=== PATIENT | male | born 1945 | race Caucasian/White ===

== ENCOUNTER 2018-08-06 05:22 | Inpatient (IN) | payer OTHER, MEDICAID ==
[~2018-08-06] VITALS: Ht 182.9 cm; Wt 81.6 kg
[2018-08-06 05:24] VITALS: BP 144/92
--- NOTE | 2018-08-06 05:25 | NUR ---
0515-- PT BIBA BLS TO ER BED 9
[2018-08-06] MEDS ORDERED: NACL 0.9% 1,000 ML IV ONE (05:30)
--- NOTE | 2018-08-06 05:30 | NUR ---
73 Y/O M BIBA WITH ALTERED MENTAL STATUS. GCS 11. ASLEEP BUT RESPONDS TO PAINFUL STIMULI AND NAME. PT AWAKENS MOMENTARILY BUT QUICKLY FALLS BACK ASLEEP. UNABLE TO ANSWER QUESTIONS. MUMBLED SPEECH. PERRL PRESENT. PT HAS COUGH. BILATERAL LUNG [place] CLEAR. O2 SATURATION AT 96% ON ROOM AIR. PT HAD DRIED FECES ON CLOTHING AND DOWN RIGHT LEG. ERMD NOTIFIED. WILL CONTINUE TO MONITOR.
--- NOTE | 2018-08-06 06:00 | NUR ---
PT AWAKEN. AMBULATED TO WHEELCHAIR WITH ASSITANCE. GAIT UNSTEADY. PT TAKEN TO SHOWER.
[2018-08-06 07:00] LABS: BASOPHILS # (AUTO) 0.1 K/uL (0.00-0.22); BASOPHILS % (AUTO) 0.5 % (0.0-2.0); EOSINOPHILS # (AUTO) 0.1 K/uL (0-0.4); EOSINOPHILS % (AUTO) 0.8 % (0.0-4.0); HEMATOCRIT 37.7 % (36-52); HEMOGLOBIN 12.4 g/dL (12.0-18.0); LYMPHOCYTES # (AUTO) 1.4 K/uL (2.0-11.5); LYMPHOCYTES % (AUTO) 11.6 % (20.5-51.1); MEAN CORPUSCULAR HEMOGLOBIN 31 pg (27-31); MEAN CORPUSCULAR HGB CONC 33 g/dL (33-37); MEAN CORPUSCULAR VOLUME 93.7 fL (80-94); MONOCYTES # (AUTO) 1.4 K/uL (0.8-1.0); MONOCYTES % (AUTO) 11.3 % (1.7-9.3); NEUTROPHILS # (AUTO) 9.5 K/uL (1.8-7.7); NEUTROPHILS % (AUTO) 75.8 % (42.2-75.2); PLATELET COUNT (AUTO) 387 K/uL (140-450); RED BLOOD CELL COUNT(AUTO) 4.03 MIL/uL (4.20-6.10); RED CELL DISTRIBUTION WIDTH 14.8 % (11.6-13.7); WHITE BLOOD COUNT (AUTO) 12.5 K/uL (4.8-10.8)
[2018-08-06 07:02] LABS: ANION GAP 15.9 (8-16); CARBON DIOXIDE 26.1 mmol/L (21-32); CHLORIDE 94 mmol/L (98-107); GLUCOSE 91 mg/dL (74-106); SODIUM SERUM 132 mmol/L (136-145); UREA NITROGEN, BLOOD 16 mg/dL (7-18)
[2018-08-06 07:08] LABS: ALBUMIN 3.5 g/dL (3.4-5.0); ASPARTATE AMINOTRANSFERASE 37 U/L (15-37); TOTAL BILIRUBIN 0.4 mg/dL (0.0-1.0)
--- NOTE | 2018-08-06 07:10 | NUR ---
REPORT GIVEN TO BERNICE COBURN. TRANSFER OF CARE AT THIS TIME.
--- NOTE | 2018-08-06 07:18 | NUR ---
DR. DE JESUS BEDSIDE EVALUATING PT
--- NOTE | 2018-08-06 07:38 | NUR ---
PT PULLED ARM UPON INITIATING IV ON RT HAND. UNABLE TO OBTAIN URINE AT THIS TIME.PT AOX3, AWAKE TO SOUND. PT STATES HE DRANK BOTTLE OF WINE, CAUSED ABD DISCOMFORT. VS STABLE AT THIS TIME. PT PLACED ON FULL MANAGER TRANSITION . WILL CONITNUE TO MONITOR PT.
--- NOTE | 2018-08-06 09:00 | NUR ---
DR. MART AT THE BEDSIDE FOR PT EVAL.
[2018-08-06 09:10] VITALS: BP 123/78
--- NOTE | 2018-08-06 09:10 | NUR ---
RECEIVED PT FROM ER NURSE, PT IS LETHARGIC AND NOT FULLY AWAKE BUT RESPONDS WHEN BEING CALLED, HAS AN IV LINE ON THE RT FA G. 22 WITH NS STILL FINISHING THE NS BOLUS, VITAL SIGNS TAKEN AND IS STABLE, HOMELESS AND NO SIGN OF DISTRESS NOTED. WILL CONTINUE TO MONITOR PT.
--- NOTE | 2018-08-06 09:10 | NUR ---
Patient will be admitted to care of . Admited to . Will go to room. Belongings list completed. Report to .PT STABLE AT THIS TIME.
[2018-08-06] MEDS ORDERED: ONDANSETRON 4 MG/2 ML VIAL IM/IVP PRN (09:15)
[2018-08-06] MEDS ORDERED: HYDROcodone/APAP 5/325 MG 1 TAB TAB PO PRN (09:15)
[2018-08-06] MEDS ORDERED: DOCUSATE SODIUM 100 MG GELCAP PO PRN (09:15)
[2018-08-06] MEDS ORDERED: MORPHINE SULFATE 2 MG/ML SYR IVP PRN (09:15)
[2018-08-06] MEDS ORDERED: ACETAMINOPHEN 325 MG TAB PO PRN (09:15)
[2018-08-06] MEDS ORDERED: ZOLPIDEM 5 MG TAB PO PRN (09:15)
[2018-08-06] MEDS ORDERED: LORazepam 2 MG/ML VIAL IM/IVP PRN (09:15)
[2018-08-06 09:23] LABS: BILIRUBIN,URINE NEGATIVE (NEGATIVE); BLOOD, URINE 3+ (NEGATIVE); COLOR,URINE YELLOW (YELLOW); LEUKOCYTE ESTERASE ,URINE NEGATIVE (NEGATIVE); NITRITE, URINE NEGATIVE (NEGATIVE); UGLUCOSE NEGATIVE (NEGATIVE)
--- NOTE | 2018-08-06 09:25 | NUR ---
PATIENT HAS BEEN SCREENED AND CATEGORIZED HIGH NUTRITION RISK. PATIENT WILL BE SEEN WITHIN 1-2 DAYS OF ADMISSION. 08/07/18-08/08/[address]
[2018-08-06 09:43] LABS: PROTHROMBIN TIME 8.9 secs (10.8-13.4)
[2018-08-06 09:51] LABS: CHOL/HDL RATIO 3.5 (1-4.5); MAGNESIUM 2.2 mg/dL (1.8-2.4); THYROID STIMULATING HORMONE 1.94 uIU/mL (0.34-3.74)
[2018-08-06] MEDS ORDERED: PANTOPRAZOLE 40 MG TABEC PO SCH (10:00)
[2018-08-06] MEDS ORDERED: chlordiazePOXIDE 25 MG CAP PO SCH (10:00)
[2018-08-06] MEDS ORDERED: LACTOBACILLUS RHAMNOSUS GG 1 EACH CAP PO SCH (10:00)
[2018-08-06 10:19] LABS: APPEARANCE,URINE SLIGHTLY HAZY (CLEAR)
[2018-08-06 10:20] LABS: RBC,URINE 20-50 /HPF (0-5); WBC,URINE 0-5 /HPF (0-5)
[2018-08-06] MEDS: NACL 0.9% 1,000 ML IV SCH (10:34)
[2018-08-06 10:55] LABS: BARBITURATE, URINE NEG. ng/ml (NEG <=200); BENZODIAZEPINE, URINE POS. ng/mL (NEG <=200); CANNABINOID, URINE NEG. ng/mL (NEG <=50); COCAINE, URINE NEG. ng/mL (NEG <=300); OPIATE, URINE NEG. ng/mL (NEG <=2000); PHENCYCLIDINE SCREEN,URINE NEG. ng/mL (NEG <=25)
--- NOTE | 2018-08-06 11:00 | NUR ---
PT IS OFF THE UNIT NOW FOR A CT.
[2018-08-06 12:00] VITALS: BP 145/86
[2018-08-06] MEDS: PIPER/TAZO 3.375GM/D5W PREMIX 50 ML IV SCH ×2 (12:20→20:07)
--- NOTE | 2018-08-06 12:20 | NUR ---
PT WAS GIVEN IV ZOSYN VIA PIGGYBACK NOW. WILL MONITOR PT.
[2018-08-06] MEDS: MULTIVITAMIN-12 10 ML, THIAMINE 100 MG, FOLIC ACID 1 MG, MAGNESIUM SULFATE 50% 2,000 MG... IV SCH ×5 (13:42)
[2018-08-06] MEDS: chlordiazePOXIDE 25 MG CAP PO SCH ×2 (13:43→16:55)
--- NOTE | 2018-08-06 13:44 | NUR ---
PT WAS STARTED ON A BANANA BAG AT 1000ML AT A RATE OF 100ML/HR, ORAL MEDICATION WAS GIVEN, BP WAS 143/88, PULSE IS 100 AND O2 SATURATION IS 94%, NO SIGN OF DISTRESS NOTED AND WILL MONITOR PT.
[2018-08-06 16:00] VITALS: BP 102/68
--- NOTE | 2018-08-06 16:59 | NUR ---
PT'S VITAL SIGNS WAS CHECKED BP IS 139/67, PULSE IS 94, O2 SATURATION IS 96%, ORAL MEDICATION WAS GICEN AND PT TOLERATED IT. WILL MONITOR PT.
--- NOTE | 2018-08-06 19:22 | NUR ---
ENDORSED PT TO CLAY PRODUCTS GLAZER NURSE FOR CONTINUITY OF CARE.
--- NOTE | 2018-08-06 19:23 | NUR ---
REPORT RECEIVED FROM AM NURSE AT BEDSIDE. PT IN STABLE CONDITION. AAOX3-4. INTRODUCED SELF TO PT. BOARD UPDATED. NO COMPLAINTS OF PAIN. NO SOB. AFEBRILE. IV SITE R FA 22G RUNNING BANANA BAG@100ML/HR PATENT AND INTACT. ORIGINALLY RUNNING NS@60ML/HR. SKIN WARM, DRY, AND INTACT WITH NO OPEN WOUNDS. BED LOCKED IN LOW POSITION. CALL REIS WITHIN REACH. SAFETY PRECAUTION IN PLACE. ALL NEEDS MET AT THIS TIME.
[2018-08-06 20:00] VITALS: BP 119/73
[2018-08-06] MEDS: PANTOPRAZOLE 40 MG TABEC PO SCH (20:07)
--- NOTE | 2018-08-06 20:07 | NUR ---
FLY HUNG AND RUNNING. PROTONIX GIVEN PO. PT TOLERATED WELL.
--- NOTE | 2018-08-06 22:30 | NUR ---
IV R FA 22G INFILTRATED. PT R ARM IS SWOLLEN. ARM ELEVATED TO ALLOW SWELLING TO REDUCE. IV D/C. CANNULA INTACT. WILL INSERT NEW IV.
--- NOTE | 2018-08-06 22:55 | NUR ---
NEW IV INSERTED L FA 22G. 1 ATTEMPT. FLUSHES WELL.
[2018-08-07] VITALS: BP 125/64
[2018-08-07] MEDS: MULTIVITAMIN-12 10 ML, THIAMINE 100 MG, FOLIC ACID 1 MG, MAGNESIUM SULFATE 50% 2,000 MG... IV SCH ×5 (00:17)
--- NOTE | 2018-08-07 00:17 | NUR ---
BANANA BAG 2/2 HUNG AND RUNNING. PT TOLERATING WELL.
[2018-08-07] MEDS: NACL 0.9% 1,000 ML IV SCH ×2 (01:06→18:34)
--- NOTE | 2018-08-07 01:20 | NUR ---
PT AWAKE IN BED ATTEMPTING TO SLEEP. NO S/S OF DISTRESS NOTED. WILL CONTINUE TO MONITOR.
--- NOTE | 2018-08-07 03:10 | NUR ---
PT SLEEPING COMFORTABLY IN BED BUT AROUSABLE. NO S/S OF DISTRESS NOTED. RESPIRATIONS EVEN, UNLABORED, AND WNL. WILL CONTINUE TO MONITOR.
[2018-08-07 04:00] VITALS: BP 129/66
[2018-08-07] MEDS: PIPER/TAZO 3.375GM/D5W PREMIX 50 ML IV SCH ×3 (04:29→20:42)
--- NOTE | 2018-08-07 04:29 | NUR ---
FLY HUNG AND RUNNING. PT TOLERATING WELL.
--- NOTE | 2018-08-07 05:22 | NUR ---
BS 121. NO INSULIN COVERAGE NEEDED. Addendum: 08/07/18 at 0523 by Dorian Sunshine RN WRONG PATIENT.
[2018-08-07 07:11] LABS: BASOPHILS # (AUTO) 0.1 K/uL (0.00-0.22); BASOPHILS % (AUTO) 0.6 % (0.0-2.0); EOSINOPHILS # (AUTO) 0.2 K/uL (0-0.4); EOSINOPHILS % (AUTO) 2.2 % (0.0-4.0); HEMATOCRIT 37.2 % (36-52); HEMOGLOBIN 12.5 g/dL (12.0-18.0); LYMPHOCYTES # (AUTO) 1.7 K/uL (2.0-11.5); LYMPHOCYTES % (AUTO) 17.5 % (20.5-51.1); MEAN CORPUSCULAR HEMOGLOBIN 32 pg (27-31); MEAN CORPUSCULAR HGB CONC 34 g/dL (33-37); MEAN CORPUSCULAR VOLUME 94.4 fL (80-94); MONOCYTES # (AUTO) 1.1 K/uL (0.8-1.0); MONOCYTES % (AUTO) 12.1 % (1.7-9.3); NEUTROPHILS # (AUTO) 6.4 K/uL (1.8-7.7); NEUTROPHILS % (AUTO) 67.6 % (42.2-75.2); PLATELET COUNT (AUTO) 371 K/uL (140-450); RED BLOOD CELL COUNT(AUTO) 3.94 MIL/uL (4.20-6.10); RED CELL DISTRIBUTION WIDTH 14.9 % (11.6-13.7); WHITE BLOOD COUNT (AUTO) 9.5 K/uL (4.8-10.8)
--- NOTE | 2018-08-07 07:16 | NUR ---
REPORT GIVEN TO AM NURSE AT BEDSIDE. PT IN STABLE CONDITION.
[2018-08-07 07:18] LABS: ANION GAP 14.6 (8-16); CARBON DIOXIDE 21.6 mmol/L (21-32); CHLORIDE 100 mmol/L (98-107); CREATININE 0.9 mg/dL (0.7-1.3); GLUCOSE 120 mg/dL (74-106); POTASSIUM 4.2 mmol/L (3.5-5.1); SODIUM SERUM 132 mmol/L (136-145); UREA NITROGEN, BLOOD 12 mg/dL (7-18)
--- NOTE | 2018-08-07 07:20 | NUR ---
RECEIVED PT FROM WEB EDITOR, PT IS UP AND STANDING AND BEING CLEANED BY AED TRAINER, HAS AN IV LINE ON THE LEFT FA G. 22 WITH BANAN BAG INFUSING AT 100 ML/HR, INTACT, FALL AND SAFETY PRECAUTION ENFORCED, PT TALKING TO OTHER PT ON THE OTHER BED, NO SIGN OF DISTRESS NOTED AND WILL MONITOR PT.
[2018-08-07 08:00] VITALS: BP 119/62
[2018-08-07] MEDS ORDERED: MORPHINE SULFATE 2 MG/ML SYR IVP PRN (08:00)
--- NOTE | 2018-08-07 08:10 | NUR ---
PT IS AWAKE AND VITAL SIGNS CHECKED BP IS 119/62, PULSE IS 104, O2 SATURATION IS 97%, TEMPERATURE IS 97.9, RESPIRATION IS 18/MIN AND NO SIGN OF DISTRESS NOTED. WILL MONITOR PT.
[2018-08-07] MEDS: PANTOPRAZOLE 40 MG TABEC PO SCH ×2 (08:27→20:42)
[2018-08-07] MEDS: chlordiazePOXIDE 25 MG CAP PO SCH ×3 (08:28→17:36)
[2018-08-07] MEDS ORDERED: LACTOBACILLUS RHAMNOSUS GG 1 EACH CAP PO SCH (09:00)
[2018-08-07 12:00] VITALS: BP 126/60
[2018-08-07] MEDS ORDERED: MORPHINE SULFATE 2 MG/ML SYR IVP SCH (12:00)
[2018-08-07] MEDS ORDERED: NICOTINE TRANSD SYS 14 MG/24 HR PATCH TD SCH (12:00)
[2018-08-07] MEDS ORDERED: PROMETH/CODEINE 6.25-10MG/5ML 5 ML UDC PO PRN (12:10)
--- NOTE | 2018-08-07 12:20 | NUR ---
PT IS AWAKE AND EATING HIS LUNCH ORAL AND IV MEDICATIONS WERE GIVEN TO PT NA TOLERATED IT. WILL MONITOR PT.
--- NOTE | 2018-08-07 13:45 | NUR ---
PT WAS CLEANED AND WAS ASSISTED BACK TO BED AND PT SLEPT.
[2018-08-07 16:00] VITALS: BP 155/71
--- NOTE | 2018-08-07 17:40 | NUR ---
PT WAS CLEANED AND WAS ASSISTED BACK TO BED, V/S CHECKED AND ORAL MEDICATION WAS GIVEN AND PT TOLERATED IT. NO SIGN OF DISTRESS NOTED. WILL MONITOR PT.
--- NOTE | 2018-08-07 19:05 | NUR ---
ENDORSED PT TO BLENDER OPERATOR NURSE FOR CONTINUITY OF CARE.
--- NOTE | 2018-08-07 19:10 | NUR ---
RECEIVED PT FROM TELLO QUEEN . PT AAOX3 COOPERATIVE TO FOLLOW DR ;ORDERS, IV ON LEFT ARM INFUSING WELL NOT DISTRESS NOTED PT STILL COUGHING
[2018-08-07 20:00] VITALS: BP 170/89
--- NOTE | 2018-08-07 21:58 | NUR ---
AFTER PAIN MEDIC GIVEN PT IS SLEEING WELLL NOT DISTRESS NOTED BP WILL BE MONITORING
[2018-08-08] VITALS: BP 136/79
--- NOTE | 2018-08-08 00:12 | NUR ---
PT SLEEPING WELL NOT DISTRESS NOTED BP MONITORING AND STABLE AT THIS TIME, IV ;;ON LEFT FA INFUSING WELL
--- NOTE | 2018-08-08 03:00 | NUR ---
PT AWAKE VOIDING WELL NOT DISTRESS NOTED IV ON LEFT FA INFUSING WELL
[2018-08-08] MEDS: PIPER/TAZO 3.375GM/D5W PREMIX 50 ML IV SCH (04:45)
[2018-08-08] MEDS: NACL 0.9% 1,000 ML IV SCH (05:07)
--- NOTE | 2018-08-08 05:37 | NUR ---
SPONGE BATH GIVEN , LINEN CHANGED PT COOOPERATIVE NOT DISTRESS NOTED IV ON LEFT FA INFUSING WELL
--- NOTE | 2018-08-08 06:21 | NUR ---
PT WILL BE ENDORSED TO DAY SHIFT NURSE FOR CONTINUE OF CARE
[2018-08-08 06:44] LABS: ANION GAP 13.8 (8-16); CARBON DIOXIDE 23.2 mmol/L (21-32); CHLORIDE 103 mmol/L (98-107); CREATININE 0.9 mg/dL (0.7-1.3); GLUCOSE 92 mg/dL (74-106); SODIUM SERUM 136 mmol/L (136-145); UREA NITROGEN, BLOOD 11 mg/dL (7-18)
[2018-08-08 06:53] LABS: BASOPHILS # (AUTO) 0.1 K/uL (0.00-0.22); BASOPHILS % (AUTO) 0.6 % (0.0-2.0); EOSINOPHILS # (AUTO) 0.2 K/uL (0-0.4); EOSINOPHILS % (AUTO) 2.6 % (0.0-4.0); HEMATOCRIT 30.7 % (36-52); HEMOGLOBIN 10.5 g/dL (12.0-18.0); LYMPHOCYTES # (AUTO) 1.4 K/uL (2.0-11.5); LYMPHOCYTES % (AUTO) 16.7 % (20.5-51.1); MEAN CORPUSCULAR HEMOGLOBIN 32 pg (27-31); MEAN CORPUSCULAR HGB CONC 34 g/dL (33-37); MEAN CORPUSCULAR VOLUME 93.8 fL (80-94); MONOCYTES # (AUTO) 1.1 K/uL (0.8-1.0); MONOCYTES % (AUTO) 12.4 % (1.7-9.3); NEUTROPHILS # (AUTO) 5.8 K/uL (1.8-7.7); NEUTROPHILS % (AUTO) 67.7 % (42.2-75.2); PLATELET COUNT (AUTO) 344 K/uL (140-450); RED BLOOD CELL COUNT(AUTO) 3.27 MIL/uL (4.20-6.10); RED CELL DISTRIBUTION WIDTH 14.4 % (11.6-13.7); WHITE BLOOD COUNT (AUTO) 8.5 K/uL (4.8-10.8)
--- NOTE | 2018-08-08 07:01 | NUR ---
RECEIVED BED SIDE REPORT FROM MEDICAL LABORATORY SCIENTIST RN LYNDA. PT AWAKE. CXR BEING DONE TO CHECK FOR ANY PNA. STILL WAITING ON CORRUGATOR TO CALL ME FOR TRANSFER. DC ORDER PUT IN BY . ECHO STILL TO BE DONE ON PT. VS STABLE, BP A LITTLE ELEVATED 168/86, WILL GIVE BP MEDS IF ORDERED. SKIN INTACT, L FOREARM 22G RUNNING NS 60CC/HR. WILL CONTINUE TO MONITOR
[2018-08-08] MEDS ORDERED: INUL1CTB PO (08:02)
[2018-08-08] MEDS ORDERED: AMOX-1000 PO (08:02)
--- NOTE | 2018-08-08 08:25 | NUR ---
CAME TO SEE PT AND SAID THAT HE WILL BE DISCHARGED LATER TODAY BUT FIRST NEEDS TO HAVE AN ECHO DONE. PT SAID HE WILL NOT WAIT. SAID HE HAS FAMILY PROBLEMS AND IT IS AN EMERGENCY AND HE NEEDS TO GO HELP. EDUCATED HIM ON THE IMPORTANCE OF HAVING THE ECHO DONE. PT REQUESTED NEW CLOTHES BECAUSE HIS OLD ONES WERE SOAKED. CALLED SECURITY TO BRING HIM NEW ONES. PT BEGAN TO DRESS HIMSELF. REQUESTED TO HAVE HIS IV TAKEN OUT. EDUCATED PT AGAIN AND ASKED IF HE COULD STAY UNTIL THE ECHO IS FINISHED. PT REFUSED AND CONTINUED TO DRESS HIMSELF. NOTIFIED CIGARETTE INSPECTOR JOWIE
[2018-08-08] MEDS ORDERED: NICOTINE TRANSD SYS 14 MG/24 HR PATCH TD SCH (09:00)
--- NOTE | 2018-08-08 09:11 | NUR ---
PT SIGNED AMA FORM, EXPLAINED THE RISKS OF LEAVING AMA. RX ABX GIVEN TO PT WELL HOMELESS RESOURCE PACKET. PT'S WRIST BAND IS OFF, CURRENTLY BEING HELPED TO BE WHEELED OUT BY LALY NICOLE. PERSONAL BELONGINGS TAKEN BY PT. PT IN STABLE CONDITION.
--- NOTE | 2018-08-08 09:22 | NUR ---
PT DRESSED AND IN WHEELCHAIR. REQUESTED A BUS PASS. CALLED HOUSE SUP AND GOT ONE FOR PT.
== END 2018-08-08 09:25 | disposition left against medical advice (07) | DRG 871 ==
LOC: MED 05:22 → MTU 08:42
PROVIDERS: ADMIT General Practice; ATTEND General Practice
DX: A41.9 Sepsis, unspecified organism (principal); J69.0 Pneumonitis due to inhalation of food and vomit; G92 Toxic encephalopathy; F10.239 Alcohol dependence with withdrawal, unspecified; E87.1 Hypo-osmolality and hyponatremia; Y90.0 Blood alcohol level of less than 20 mg/100 ml; I10 Essential (primary) hypertension; F17.200 Nicotine dependence, unspecified, uncomplicated; Z53.21 Procedure and treatment not carried out due to patient leaving prior to being seen by health care provider; R31.9 Hematuria, unspecified; Z59.0 Homelessness
CPT/HCPCS: 36415; 70450; 71045; 76604; 80048; 80053; 80305; 81001; 82140; 82150; 83036; 83605; 83690; 83735; 83880; 84100; 84134; 84443; 84484; 85025; 85610; 85730; 87040; 87081; 93005; 99285; A9153; G0482; J2270; J2543; J3411; J3475; J3490; J7030; Q0092

== ENCOUNTER 2019-02-19 07:56 | Emergency (ER) | payer OTHER, MEDICAID ==
[~2019-02-19] VITALS: Ht 172.7 cm; Wt 68.0 kg
[2019-02-19 07:56] VITALS: BP 164/115
[~2019-02-19 07:56] MED LIST: AMOX-1000 PO; INUL1CTB PO
--- NOTE | 2019-02-19 07:57 | NUR ---
Patient BIBA BLS, transferred to bed 5. RN evaluating patient at bedside.
[2019-02-19] MEDS ORDERED: KETOROLAC 60 MG/2 ML VIAL IM ONE (08:15)
--- NOTE | 2019-02-19 08:33 | NUR ---
BIBA ALS C/O BILATERAL LEG PAIN, STATES HE FELL X1 WEEK AGO IN THE RAIN, BILATERAL LOWER LEGS APPEAR SWOLLEN AND RED.PT IS AWAKE , ALERT ,REDNESS OF BILATERAL LEG WITH HEALING ABRASION ON RIGHT LEG NOTED.PAIN AT 8/10.PT ABLE TO MOVE BOTH LEGS WITH PAIN.PT IS IRRITABLE . HX DENIES
[2019-02-19] MEDS ORDERED: MORPHINE SULFATE 4 MG/ML SYR IM ONE (12:15)
--- NOTE | 2019-02-19 14:09 | NUR ---
Dr. Arboleda is evaluating the patient at bedside.
[2019-02-19 14:31] VITALS: BP 132/75
--- NOTE | 2019-02-19 14:33 | NUR ---
Patient discharged with v/s stable. Written and verbal after care instructions given and explained cellulitis. Patient alert, oriented and verbalized understanding of instructions. Ambulatory with steady gait. All questions addressed prior to discharge. ID band removed. Patient advised to follow up with PMD. Rx of motrin,prednisone,and keflex given. Patient educated on indication of medication including possible reaction and side effects. Opportunity to ask questions provided and answered.Pt given list of shelters to go , taxi pass given and food to go.
--- NOTE | 2019-02-19 14:46 | NUR ---
Taxi voucher provided. Taxi called. ETA approximately 45 min-1 hour. Pt waiting in ER lobby at this time.
--- NOTE | 2019-02-19 15:14 | NUR ---
straight truck driver refusing to take patient to destination. Pt told ready mix truck driver that he would not get out of the taxi and couldn't walk. Pt wants to lay down inside in a bed and wait for morning to go to clinic. I advised patient that he couldn't wait inside but could wait in ER lobby until morning.
== END 2019-02-19 14:33 | disposition home or self-care (01) ==
LOC: MED 07:56
DX: L03.116 Cellulitis of left lower limb (principal); L03.115 Cellulitis of right lower limb; F17.210 Nicotine dependence, cigarettes, uncomplicated; I10 Essential (primary) hypertension; Z79.899 Other long term (current) drug therapy
CPT/HCPCS: 96372; 99283; J1885; J2270

== ENCOUNTER 2019-02-20 11:57 | Inpatient (IN) | payer OTHER, MEDICAID ==
[~2019-02-20] VITALS: Ht 172.7 cm; Wt 59.0 kg
[2019-02-20 12:00] VITALS: BP 150/84
--- NOTE | 2019-02-20 12:03 | NUR ---
PT TRIAGED ON EMS GURNEY, PLACED IN W/C AND SENT TO ER LOBBY TO WAIT FOR AVAILABLE BED.
--- NOTE | 2019-02-20 12:38 | NUR ---
Pt yelling in the ER lobby, pulling his pants down and urinated all over the floor.
--- NOTE | 2019-02-20 12:41 | NUR ---
Pt w/c to bed 2.
--- NOTE | 2019-02-20 12:54 | NUR ---
C/O RIGHT LOWER LEG PAIN, FOUND IN [facility], PT WAS SEEN YESTERDAY FOR SAME SYMPTOMS. DENIES HX BUT ADMITS HX OF DRUG ADDICTIVE.WHEELCHAIRED PT TO ROOM. DENIES N/V/D; SKIN IS PINK/WARM/DRY; AWAKE, ALERT. LUNGS CLEAR BL; HR EVEN AND REGULAR; PT DENIES ANY FEVER, CP, SOB, OR COUGH AT THIS TIME; PATIENT STATES PAIN OF 10/10 AT THIS TIME; VSS; PATIENT POSITIONED FOR COMFORT; HOB ELEVATED; BEDRAILS UP X2; BED DOWN. ER MD MADE AWARE OF PT STATUS.
--- NOTE | 2019-02-20 12:55 | NUR ---
PT'S BOTH LOWER EXTREMITIES ARE WARM, SWELLING AND RED. PT C/O PAINFUL TO TOUCH.
[2019-02-20] MEDS ORDERED: NACL 0.9% 1,000 ML IV SCH (13:46)
[2019-02-20 13:49] LABS: HEMATOCRIT 36.9 % (36-52); HEMOGLOBIN 11.8 g/dL (12.0-18.0); MEAN CORPUSCULAR HEMOGLOBIN 30 pg (27-31); MEAN CORPUSCULAR HGB CONC 32 g/dL (33-37); PLATELET COUNT (AUTO) 334 K/uL (140-450); RED BLOOD CELL COUNT(AUTO) 3.93 MIL/uL (4.20-6.10); RED CELL DISTRIBUTION WIDTH 15.9 % (11.6-13.7)
[2019-02-20] MEDS ORDERED: ACETAMINOPHEN 325 MG TAB PO PRN (13:50)
[2019-02-20] MEDS ORDERED: DOCUSATE SODIUM 100 MG GELCAP PO PRN (13:50)
[2019-02-20] MEDS ORDERED: VANCOMYCIN PER PHARMACY MC PRN (13:50)
[2019-02-20] MEDS ORDERED: ONDANSETRON 4 MG/2 ML VIAL IM/IVP PRN (13:50)
[2019-02-20 14:07] LABS: WHITE BLOOD COUNT (AUTO) 39.2 K/uL (4.8-10.8)
--- NOTE | 2019-02-20 14:16 | NUR ---
FOOD TRAY PROVIDED TO BED 2.
--- NOTE | 2019-02-20 14:30 | NUR ---
TRIED TO INSERT IV. IT WAS UNSCCESFUL. NOTIFIED CHARGE NURSE.
[2019-02-20] MEDS ORDERED: PIPERACILLIN/TAZOBACTAM 3.375 GM in DEXTROSE 5% 50 ML IV ONE (14:40)
[2019-02-20] MEDS ORDERED: MORPHINE SULFATE 4 MG/ML SYR IVP ONE (14:40)
[2019-02-20 14:48] LABS: CHLORIDE 99 mmol/L (98-107); POTASSIUM 3.6 mmol/L (3.5-5.1); SODIUM SERUM 135 mmol/L (136-145)
[2019-02-20 14:49] LABS: ALBUMIN 1.5 g/dL (3.4-5.0); ANION GAP 12.9 (8-16); ASPARTATE AMINOTRANSFERASE 20 U/L (15-37); BASOPHILS % (MANUAL) 0 % (0-2); CARBON DIOXIDE 26.7 mmol/L (21-32); CREATININE 1.3 mg/dL (0.7-1.3); EOSINOPHILS % (MANUAL) 0 % (0-4); GLUCOSE 107 mg/dL (74-106); LYMPHOCYTES % (MANUAL) 3 % (20-46); MONOCYTES % (MANUAL) 2 % (5-12); TOTAL BILIRUBIN 0.4 mg/dL (0.0-1.0); UREA NITROGEN, BLOOD 38 mg/dL (7-18)
--- NOTE | 2019-02-20 15:25 | NUR ---
IV TO RIGHT FA #22.
[2019-02-20] MEDS ORDERED: PIPERACILLIN/TAZOBACTAM 3.375 GM VIAL IV ONE (15:27)
[2019-02-20] MEDS ORDERED: FUROSEMIDE 40 MG/4 ML VIAL IVP SCH (16:00)
[2019-02-20 16:37] LABS: AMYLASE 21 U/L (25-115); LIPASE 25 U/L (73-393); MAGNESIUM 1.9 mg/dL (1.8-2.4); PHOSPHORUS 3.8 mg/dL (2.5-4.9); THYROID STIMULATING HORMONE 4.58 uIU/mL (0.34-3.74)
[2019-02-20 16:39] LABS: PROTHROMBIN TIME 10.3 secs (10.8-13.4)
[2019-02-20] MEDS ORDERED: VANCOMYCIN 1,000 MG in DEXTROSE 5% 250 ML IV SCH (17:00)
[2019-02-20] MEDS ORDERED: MORPHINE SULFATE 4 MG/ML SYR IM SCH (17:00)
[2019-02-20 17:05] VITALS: BP 138/77
--- NOTE | 2019-02-20 17:05 | NUR ---
[facility]CE[place] [facility]. REPORT RECEIVED FROM BERNICE BURROUGHS. PATIENT DX: BLE CELLULITIS. PATIENT AAOX3. PLANS OF CARE DISCUSSED. IV INTACT AND PATENT TO RIGHT FOREARM. TELE MONITOR PLACED. VS STABLE. SAFETY PRECAUTIONS IN PLACE. BED IN LOW POSITION. ORIENTED TO STAFF AND ROOM. CALL LIGHT WITHIN REACH.
--- NOTE | 2019-02-20 17:12 | NUR ---
TRANSFERRED PT TO TELE 123B. REPORT GIVEN TO SLICK. ALL PERSONAL BELONGINGS WITH PT.
[2019-02-20 17:43] LABS: LACTATE DEHYDROGENASE 218 U/L (85-227)
[2019-02-20] MEDS: POTASSIUM CHL 20 MEQ/NACL 0.9% 1,000 ML IV SCH ×2 (18:00→22:38)
[2019-02-20] MEDS: VANCOMYCIN HCL 750 MG in DEXTROSE 5% 250 ML IV SCH (18:07)
--- NOTE | 2019-02-20 19:15 | NUR ---
PATIENT IN STABLE CONDITION. WILL ENDORSE TO NIGHT NURSE FOR CONTINUITY OF CARE.
--- NOTE | 2019-02-20 19:20 | NUR ---
RECEIVED PT FROM [facility] NURSE PT IS AAOX4 WITH MULTIPLES SCAB ON HIS BODY AND BLE CELLULITIS RT LE BIG BLISTER [id number] AND DISCOLORATION AND BLISTER ON LEFTLEG AND CELLULITIS IV ON RT FA INFUSING WELL INITIAL ASSESSMENT DONE
[2019-02-20 20:00] VITALS: BP 137/79
[2019-02-20 21:11] LABS: BILIRUBIN,URINE NEGATIVE (NEGATIVE); BLOOD, URINE NEGATIVE (NEGATIVE); LEUKOCYTE ESTERASE ,URINE NEGATIVE (NEGATIVE); NITRITE, URINE NEGATIVE (NEGATIVE); UGLUCOSE NEGATIVE (NEGATIVE)
[2019-02-20 21:14] LABS: APPEARANCE,URINE CLEAR (CLEAR); COLOR,URINE YELLOW (YELLOW)
--- NOTE | 2019-02-20 22:00 | NUR ---
PT RESTING ON BED NOT DISTRESS NOTED, REPOSITIONED Q2H ON TELEMETRY ST
[2019-02-20] MEDS: PIPERACILLIN/TAZOBACTAM 3.375 GM in DEXTROSE 5% 50 ML IV SCH (22:26)
[2019-02-20] MEDS: MORPHINE SULFATE 2 MG/ML SYR IVP PRN (22:43)
--- NOTE | 2019-02-20 23:30 | NUR ---
AFTER PAIN MEDIC PT GETTING SLEEP PM TELEMETRY SR
[2019-02-21] VITALS: BP 140/79
--- NOTE | 2019-02-21 02:00 | NUR ---
ER NURSE WAS ABLE TO INSERT IV ON LEFT AC GAUGE [address] BLE. AND WAS NOTIFY RADIOLOGY TRCH
[2019-02-21 04:00] VITALS: BP 150/94
--- NOTE | 2019-02-21 04:00 | NUR ---
SPONGE BATH GIVEN LINEN CHANGED ON TELE SR NOT DISTRESS NOTED
[2019-02-21] MEDS: PIPERACILLIN/TAZOBACTAM 3.375 GM in DEXTROSE 5% 50 ML IV SCH ×3 (05:06→20:31)
--- NOTE | 2019-02-21 07:00 | NUR ---
PT READY TO HACE CT OF BILATERAL LE CONSENT SIGNED
--- NOTE | 2019-02-21 07:25 | NUR ---
RECEIVED REPORT FROM MEDICAL RECORDS ADMINISTRATOR NURSE FOR CONTINUATION OF CARE. WILL CONTINUE TO MONITOR.
[2019-02-21 08:00] VITALS: BP 156/83
[2019-02-21] MEDS: FUROSEMIDE 40 MG/4 ML VIAL IVP SCH (08:21)
[2019-02-21] MEDS: LACTOBACILLUS RHAMNOSUS GG 1 EACH CAP PO SCH (08:21)
--- NOTE | 2019-02-21 08:50 | NUR ---
PATIENT HAS BEEN SCREENED AND CATEGORIZED MODERATE NUTRITION RISK. PATIENT WILL BE SEEN WITHIN 3-5 DAYS OF ADMISSION. 02/23/19 02/25/[address]
[2019-02-21 09:07] LABS: HEMATOCRIT 28.3 % (36-52); HEMOGLOBIN 9.1 g/dL (12.0-18.0); MEAN CORPUSCULAR HEMOGLOBIN 30 pg (27-31); MEAN CORPUSCULAR HGB CONC 32 g/dL (33-37); MEAN CORPUSCULAR VOLUME 92.5 fL (80-94); PLATELET COUNT (AUTO) 354 K/uL (140-450); RED BLOOD CELL COUNT(AUTO) 3.06 MIL/uL (4.20-6.10); RED CELL DISTRIBUTION WIDTH 15.3 % (11.6-13.7)
--- NOTE | 2019-02-21 10:00 | NUR ---
PATIENT IS RESTING IN BED, BLE ARE RED AND HE REPORTS PAIN, CALLED [facility] IN [place] TO CLARIFY [facility] ORDER. WAITING FOR CALL BACK. WILL CONTINUE TO MONITOR. BED IN LOW POSITION, CALL LIGHT ON AND WITHIN REACH. WILL CONTINUE TO MONITOR.
[2019-02-21 10:24] LABS: LYMPHOCYTES % (MANUAL) 2 % (20-46); MONOCYTES % (MANUAL) 2 % (5-12); WHITE BLOOD COUNT (AUTO) 32.8 K/uL (4.8-10.8)
--- NOTE | 2019-02-21 10:46 | NUR ---
Angle Roll Operator Note: Patient is a 73-year-old male admitted for bilateral lower extremity pain. Patient has PMHX of hypertension. Patient was admitted from home. SW met with patient to verify demographics. Patient was asleep and refused to complete assessment. SW will follow up as needed. Addendum: 02/23/19 at 1605 by Thuan Galloway SS SW met with patient at bed side to retrieve patient's address. Patient stated that he had been couch surfing but now has no where to stay. Patient reported receiving ~$1000 from [employer]. SW provided room and board resources to patient. Patient stated he would coordinate living arrangements. SW will follow up as needed.
--- NOTE | 2019-02-21 10:54 | NUR ---
DC PLANNIN YRS OLD MALE PT WAS ADMITTED FROM HOME WITH A DX OF BILATERAL LOWER EXTREMITY CELLULITIS . PT HAS NO MEDICAL HX. CHRONIC ULCER 4TH TOE RT FOOT . WBC 32.8 ADMINISTERED IV ABX VANCOMYCIN/ ZOSYN ,BLOOD CULTURE AND WOUND CULTURE PENDING PODIATRY SEEN PATIENT RECOMMENDED VASCULAR SURGERY . DC PLAN TO TRANSFER PT TO [facility] FOR VASCULAR SURGERY DUE TO SEVER PERIPHERAL VASCULAR DISEASE . FAXED ALL THE PAPERWORK TO [facility], AND [facility] . OJSS TO FOLLOW.
[2019-02-21 12:00] VITALS: BP 154/66
[2019-02-21 12:01] LABS: CHOL/HDL RATIO 5.3 (1-4.5)
[2019-02-21] MEDS ORDERED: METHADONE 10 MG TAB PO SCH (12:14)
--- NOTE | 2019-02-21 12:30 | NUR ---
DC PLANNING RECEIVED A CALL FROM [facility] SPOKE WITH JOSHUA LINTON CONTROL , UPDATED PT'S INFORMATION REQUESTING THE CELL PHONE FOR PEER TO PEER PROVIDED THE RESIDENT'S PHONE NUMBER AND WILL FAX THE AB LETTER .CM TO FOLLOW Addendum: 02/21/19 at 1530 by Suri Cheema CM DC PLANNING: FAXED ALL THE PAPER WORK TO [facility] SPOKE WITH UVALDO , STATED THE ADMITTING OFFICE IS REVIEWING THE CASE AND WILL CALL US BACK .CM TO FOLLOW Addendum: 02/22/19 at 1112 by Suri Cheema CM LATE ENTRY 02/21/19 1600 RECEIVED A CALL FROM [facility] STATED THEY ARE ACCEPTING PT PEER TO PEER CONVERSATION WAS DONE AND WAITING FOR THE BED. ARRANGED THE TRANSPORT PLACE IT WILL CALL . Addendum: 02/22/19 at 1142 by Suri Cheema CM DC PLANNING RECEIVED A CALL FROM [facility] SPOKE WITH GAIL, STATED SHE JUST RECEIVED THE PAPERWORK FROM THE BED HUDDLE AND DOESN'T KNOWING ANYTHING. I EXPLAIN TO HER THERE IS ACCEPTING DR AND PEER TO PEER IS DONE WITH OUR DR. PER GAIL SHE DOESN'T HAVE AND BED AVAILABLE AT THIS TIME 18 PATIENTS ARE WAITING IN THE ER AND ALSO THEY GIVE PRIORITY TO THE PATIENT LIVES IN [facility]. CALLED [facility] SPOKE WITH KARINA BED CONTROL STATED THEY ARE IN LEVEL 3 CAN NOT ACCEPT ANY TRANSFERS AND HESITATED TO TAKE PATIENT INFO. I EXPLAINED HER THAT THIS IS LIFE THREATENING PT MIGHT LOOSE HIS LEG AND AT LEAST TO TAKE SOME INFO. KARINA PUT ME ON HOLD FOR A FEW MINUTES AND BACK AND RECEIVED PATIENT'S INFORMATION AND SHE INSIST TO TRY ANOTHER HOSPITAL, I ALSO EXPLAIN THAT WE TRIED MANY HOSPITAL AND NO BED AT ALL. AND THIS PT REQUIRED PRIORITY NEEDS A VASCULAR SURGEON , KARINA STILL HESITATED TO PUT HIM ON THE PRIORITY LIST. CALLED [facility] SPOKE WITH ROXANA TWISTING OPERATOR [phone] RE OPEN THE CASE AGAIN AND TOLD HER [facility] HAS NO BED. PER ROXANA SHE WILL REVIEW THE CASE AND WILL CALL US BACK Addendum: 02/22/19 at 1148 by Suri Cheema CM DC PLANNING: CALLED [facility] SPOKE WITH NILE REGARDING TRANSFER , SHE STILL LOOK FOR THE VASCULAR SURGEON AND WILL CALL US BACK Addendum: 02/22/19 at 1348 by Suri Cheema CM DC PLANNING RECEIVED A CALL FROM [facility] , STATED THEY DECLINE PT BECAUSE IT IS A CHRONIC AND DOESN'T NEED EMERGENCY TRANSFER. Addendum: 02/22/19 at 1650 by Suri Cheema CM DC PLANNING FAXED TO [facility] , REVIEWING THE CASE AND WILL CALL BACK Addendum: 02/23/19 at 1109 by Suri Cheema CM DC PLANNING RECEIVED A CALL FROM [facility] SPOKE WITH [facility] BED COORDINATOR STATED NEEDS A AB SIGNED AND FAXED BACK TO THEM. AB SIGNED BY NYDIA BANEGAS AND FAXED BACK TO [facility] . [facility] STATED HE RECEIVED IT AND ONCE BED AVAILABLE HE WILL CALL BACK. RECEIVED A MESSAGE FROM [facility] GAIL AND [facility] RUDOLPH STATED THERE IS NO BED AVAILABLE AT THIS TIME. CM TO FOLLOW Addendum: 02/23/19 at 1530 by Suri Cheema CM DC PLANNING CALLED [facility] SPOKE WITH YARELY STATED RECEIVED THE REQUEST BUT THEY ARE TOO BUSY TO REVIEW THE CASE AND NO BED AVAILABLE AT THIS TIME. CALLED [facility] SPOKE WITH HADLEY STILL WAITING FOR BED AND ONCE HE HAS A BED WILL CALL US BACK .CM TO FOLLOW.
--- NOTE | 2019-02-21 12:30 | NUR ---
PATIENT IS RESTING IN BED, BED IN LOW POSITION, CALL LIGHT ON AND WITHIN REACH. WILL CONTINUE TO MONITOR. [facility] WAS CONFIRMED AT [address] JORDAN ORDERED 90 MG Q DAY. IV FLUIDS GIVEN. TOLERATED MEDICATIONS WELL.
[2019-02-21] MEDS: POTASSIUM CHL 20 MEQ/NACL 0.9% 1,000 ML IV SCH (13:37)
--- NOTE | 2019-02-21 15:00 | NUR ---
PATIENT IS RESTING IN BED, URINAL EMPTIED, PATIENT COMPLAINS OF PAIN, LUNCH TOLERATED WELL. CALL LIGHT ON AND WITHIN REACH. WILL CONTINUE TO MONITOR.
[2019-02-21 16:00] VITALS: BP 153/56
[2019-02-21 17:16] LABS: BARBITURATE, URINE NEG. ng/ml (NEG <=200); BENZODIAZEPINE, URINE NEG. ng/mL (NEG <=200); CANNABINOID, URINE NEG. ng/mL (NEG <=50); COCAINE, URINE NEG. ng/mL (NEG <=300); OPIATE, URINE NEG. ng/mL (NEG <=2000); PHENCYCLIDINE SCREEN,URINE NEG. ng/mL (NEG <=25)
[2019-02-21] MEDS: VANCOMYCIN HCL 750 MG in DEXTROSE 5% 250 ML IV SCH (17:28)
--- NOTE | 2019-02-21 17:30 | NUR ---
PATIENT IS RESTING IN BED, CALL LIGHT ON AND WITHIN REACH, WAS INFORMED THAT HE WILL BE TRANSFERRED TO [place]. WILL CONTINUE TO MONITOR.
[2019-02-21 17:34] LABS: ANION GAP 12.8 (8-16); CARBON DIOXIDE 24.8 mmol/L (21-32); CHLORIDE 100 mmol/L (98-107); CREATININE 1.1 mg/dL (0.7-1.3); GLUCOSE 62 mg/dL (74-106); POTASSIUM 3.6 mmol/L (3.5-5.1); SODIUM SERUM 134 mmol/L (136-145); UREA NITROGEN, BLOOD 27 mg/dL (7-18)
[2019-02-21] MEDS ORDERED: LAS20I IVP (18:02)
[2019-02-21] MEDS ORDERED: DOL10 PO (18:02)
[2019-02-21] MEDS ORDERED: MORP2SOL18 IVP (18:02)
[2019-02-21] MEDS ORDERED: [UNRECOGNIZED DRUG - CODE] IV (18:02)
[2019-02-21] MEDS ORDERED: ACET-1182 PO (18:02)
[2019-02-21] MEDS ORDERED: ZOS3.375PM IV (18:02)
[2019-02-21] MEDS ORDERED: HEPA500056 SUBQ (18:02)
--- NOTE | 2019-02-21 19:22 | NUR ---
REPORT GIVEN TO INCOME TAX AUDITOR NURSE FOR CONTINUITY OF CARE.
--- NOTE | 2019-02-21 19:23 | NUR ---
RECEIVED PT ON BED, AAOX3, ABLE TO MAKE NEEDS KNOWN, VITAL SIGNS STABLE, COMPLAINING OF PAIN TO BOTH LEGS, WILL MEDICATE PRN, MICHAEL LOWER EXTREMITIES CELLULITIS, SITE SWOLLEN AND RED WITH DISCOLORATION, INTACT BLISTER TO RT DORSAL FOOT AND MULTIPLE SMALL BLISTER TO LEFT LEG NOTED, BOTH LEGS ELEVATED WITH PILLOW, IVF INFUSING WELL, PLAN OF CARE DISCUSSED, SAFETY MEASURES IN PLACE, CALL LIGHT WITHIN REACH.
[2019-02-21 20:00] VITALS: BP 145/66
[2019-02-21] MEDS: HYDROcodone/APAP 5/325 MG 1 TAB TAB PO PRN (20:29)
--- NOTE | 2019-02-21 20:30 | NUR ---
PT MEDICATED PRN FOR LEG PAIN WITH NORCO, DUE ZOSYN IVPB ADMINISTERED, PT REQUESTING FOR SNACK, PUDDING X2 PROVIDED, ALL NEEDS ATTENDED.
--- NOTE | 2019-02-21 23:30 | NUR ---
PT VOIDED FREELY USING URINAL, VITAL SIGNS STABLE, NO SOB NOTED, DENIES ANY PAIN, STATED PAIN TO LEG ONLY WHEN MOVED, CONTINUE TO ELEVATE WITH PILLOW, IVF INFUSING WELL, CONTINUE TO MONITOR CLOSELY.
[2019-02-22] VITALS: BP 135/68
--- NOTE | 2019-02-22 01:50 | NUR ---
ROUNDS MADE, SEEN PT SLEEPING, NO DISTRESS NOTED, MONITORED CLOSELY.
[2019-02-22] MEDS: POTASSIUM CHL 20 MEQ/NACL 0.9% 1,000 ML IV SCH ×2 (02:27→08:35)
[2019-02-22 04:00] VITALS: BP 141/70
--- NOTE | 2019-02-22 04:00 | NUR ---
PT SLEEPING, EASILY AROUSABLE, VITAL SIGNS STABLE, DENIES ANY PAIN, NO SOB NOTED, IVF INFUSING WELL, MONITORED CLOSELY.
[2019-02-22] MEDS: PIPERACILLIN/TAZOBACTAM 3.375 GM in DEXTROSE 5% 50 ML IV SCH ×3 (04:32→20:15)
[2019-02-22] MEDS: MORPHINE SULFATE 2 MG/ML SYR IVP PRN ×2 (05:12→22:53)
--- NOTE | 2019-02-22 05:20 | NUR ---
PT COMPLAINING OF PAIN AND BURNING SENSATION TO RT LEG, REQUESTING FOR SOME OINTMENT TO BE APPLIED FOR THE RT LEG, OFFERED MORPHINE IVP FOR PAIN, PT SAID OK, MORPHINE 2MG IVP GIVEN, ASSIST IN REPOSITIONING RT LEG TO A MORE COMFORTABLE POSITION, MONITORED CLOSELY.
--- NOTE | 2019-02-22 06:20 | NUR ---
PT AGREED TO DO CT OF BLE BUT NOT AT THIS TIME, STATED "LATER", TOÑA POTTS MADE AWARE, PT INQUIRING IF ITS TIME FOR BREAKFAST, MADE AWARE THAT BREAKFAST IS AT 0730, PT REQUESTING FOR COFFEE, PROVIDED, PT WATCHING TV AT THIS TIME, WILL ENDORSE TO AM SHIFT.
--- NOTE | 2019-02-22 07:22 | NUR ---
PT AWAKE, NO DISTRESS NOTED, REPORT GIVEN TO BERNICE GLYNN FOR CONTINUITY OF CARE.
[2019-02-22 07:34] LABS: BASOPHILS % (AUTO) 0.1 % (0.0-2.0); EOSINOPHILS # (AUTO) 0.1 K/uL (0-0.4); EOSINOPHILS % (AUTO) 0.5 % (0.0-4.0); HEMATOCRIT 28.4 % (36-52); HEMOGLOBIN 9.1 g/dL (12.0-18.0); LYMPHOCYTES % (AUTO) 4.2 % (20.5-51.1); MEAN CORPUSCULAR HEMOGLOBIN 30 pg (27-31); MEAN CORPUSCULAR HGB CONC 32 g/dL (33-37); MEAN CORPUSCULAR VOLUME 93.3 fL (80-94); MONOCYTES # (AUTO) 1.5 K/uL (0.8-1.0); MONOCYTES % (AUTO) 5.9 % (1.7-9.3); NEUTROPHILS # (AUTO) 22.2 K/uL (1.8-7.7); NEUTROPHILS % (AUTO) 89.3 % (42.2-75.2); PLATELET COUNT (AUTO) 342 K/uL (140-450); RED BLOOD CELL COUNT(AUTO) 3.04 MIL/uL (4.20-6.10); WHITE BLOOD COUNT (AUTO) 24.9 K/uL (4.8-10.8)
--- NOTE | 2019-02-22 07:34 | NUR ---
RECEIVED PT ON BED, AAOX3, ABLE TO MAKE NEEDS KNOWN. VITAL SIGNS STABLE, COMPLAINING OF PAIN TO BOTH LEGS, WILL MEDICATE PRN, MICHAEL LOWER EXTREMITIES CELLULITIS, SITE SWOLLEN AND RED WITH DISCOLORATION, INTACT BLISTER TO RT DORSAL FOOT AND MULTIPLE SMALL BLISTER TO LEFT LEG NOTED. BOTH LEGS ELEVATED WITH PILLOW. IVF INFUSING WELL. PLAN OF CARE DISCUSSED WITH PT AND PT VERBALIZES UNDERSTANDING. SAFETY MEASURES IN PLACE, CALL LIGHT WITHIN REACH. ALL NEEDS MET WT THIS TIME.
[2019-02-22 08:00] VITALS: BP 143/78
[2019-02-22 08:58] LABS: MAGNESIUM 1.5 mg/dL (1.8-2.4); PHOSPHORUS 3.8 mg/dL (2.5-4.9)
[2019-02-22] MEDS ORDERED: METHADONE 10 MG TAB PO SCH (09:00)
[2019-02-22 09:04] LABS: CHLORIDE 102 mmol/L (98-107); POTASSIUM 3.7 mmol/L (3.5-5.1); SODIUM SERUM 137 mmol/L (136-145)
[2019-02-22] MEDS: METHADONE 10 MG TAB PO SCH (09:04)
[2019-02-22] MEDS: LACTOBACILLUS RHAMNOSUS GG 1 EACH CAP PO SCH (09:04)
[2019-02-22 09:05] LABS: ANION GAP 8.8 (8-16); CARBON DIOXIDE 29.9 mmol/L (21-32); CREATININE 1.2 mg/dL (0.7-1.3); GLUCOSE 87 mg/dL (74-106); UREA NITROGEN, BLOOD 27 mg/dL (7-18)
[2019-02-22] MEDS: FUROSEMIDE 40 MG/4 ML VIAL IVP SCH (09:05)
--- NOTE | 2019-02-22 09:21 | NUR ---
ADMINISTERED MORNING MEDS TO PT. PT TOLERATED WELL. ALL OTHER NEEDS MET. WILL CONTINUE TO ROUND FREQUENTLY ON PT. BED IN LOW POSITION, CALL LIGHT WITHIN REACH.
--- NOTE | 2019-02-22 11:42 | NUR ---
PT RESTING IN BED. ALL NEEDS MET. WILL CONTINUE TO ROUND FREQUENTLY ON PT. BED IN LOW POSITION, CALL LIGHT WITHIN REACH.
[2019-02-22 12:00] VITALS: BP 152/85
[2019-02-22] MEDS: CHLORHEXADINE GLUC 2% CLOTH TP SCH (12:15)
[2019-02-22] MEDS: MUPIROCIN CA NASAL 2% 1GM TUBE NS SCH (12:15)
--- NOTE | 2019-02-22 13:43 | NUR ---
PT REFUSING TO HAVE IV INSERTED. EXPLAINED TO PT THE IMPORTANCE OF HAVING IV FOR CONTINUATION OF FLUID SUPPORT AND IV ABX THERAPY. PT NOT WANTING TO HEAR TEACHING. MD AWARE AND SHE WILL SPEAK TO PT. ALL OTHER NEEDS MET. WILL CONTINUE TO ROUND FREQUENTLY ON PT.
[2019-02-22] MEDS ORDERED: ASPI81CT95 PO (14:07)
[2019-02-22] MEDS ORDERED: LIP80 PO (14:07)
[2019-02-22] MEDS ORDERED: CHLO118S2 TP (14:07)
[2019-02-22] MEDS ORDERED: MUPI2CRE22 NS (14:07)
[2019-02-22] MEDS ORDERED: LISINOPRIL 10 MG TAB PO SCH (14:30)
[2019-02-22] MEDS ORDERED: MAG SULF 2000 MG/WATER PREMIX 50 ML IV SCH (14:30)
--- NOTE | 2019-02-22 15:22 | NUR ---
PT RESTING IN BED. ALL NEEDS MET. WILL CONTINUE TO ROUND ON PT.
[2019-02-22 16:00] VITALS: BP 162/79
[2019-02-22] MEDS ORDERED: MORPHINE SULFATE 4 MG/ML SYR IVP SCH ×2 (17:32→17:35)
--- NOTE | 2019-02-22 17:46 | NUR ---
PT GONE FOR CT. PT LEFT IN STABLE CONDITION.
[2019-02-22] MEDS ORDERED: VANCOMYCIN 1,000 MG in NACL 0.9% 250 ML IV SCH (18:20)
--- NOTE | 2019-02-22 18:36 | NUR ---
FOR CASE MANAGEMENT RECEIVED CALL FROM [facility]. PER EMERGENCY VEHICLE OPERATIONS INSTRUCTOR, NO BEDS AVAILABLE FOR PT.
--- NOTE | 2019-02-22 19:32 | NUR ---
ENDORSED PT TO CONCRETE BUCKET UNLOADER FOR CONTINUITY OF CARE. PT IN STABLE CONDITION AT THIS TIME.
--- NOTE | 2019-02-22 19:33 | NUR ---
REPORT RECEIVED FROM AM NURSE AT BEDSIDE. PT IN STABLE CONDITION. AAOX4. INTRODUCED SELF TO PT. BOARD UPDATED. NO COMPLAINTS OF PAIN. NO SOB. AFEBRILE. PT IS ON BEDREST DUE TO BILATERAL LEG EDEMA. IV SITE R FA 22G RUNNING NS WITH KCL 20MEQ@50ML/HR PATENT AND INTACT. SKIN WARM, DRY, AND NOT INTACT DUE TO AN OPEN WOUND ON THE LEG. SEE WOUND NOTES. BED LOCKED IN LOW POSITION. CALL REIS WITHIN REACH. SAFETY PRECAUTION IN PLACE. ALL NEEDS MET AT THIS TIME.
[2019-02-22 20:00] VITALS: BP 111/66
[2019-02-22] MEDS ORDERED: MAG SULF 2000 MG/WATER PREMIX 50 ML IV ONE (20:00)
[2019-02-22] MEDS: HYDROcodone/APAP 5/325 MG 1 TAB TAB PO PRN (20:15)
--- NOTE | 2019-02-22 20:15 | NUR ---
HEPARIN GIVEN SUBQ. ZOSYN HUNG AND RUNNING. MAG HUNG AND RUNNING. NORCO GIVEN FOR 6/10 LEG PAIN. PT TOLERATED WELL.
--- NOTE | 2019-02-22 22:00 | NUR ---
PT IN BED WATCHING TV. NO S/S OF DISTRESS NOTED. WILL CONTINUE TO MONITOR.
--- NOTE | 2019-02-22 22:53 | NUR ---
MORPHINE GIVEN FOR 9/10 LEG PAIN. PT TOLERATED WELL.
[2019-02-22] MEDS: ZOLPIDEM 5 MG TAB PO PRN (23:14)
[2019-02-23] VITALS: BP 143/79
--- NOTE | 2019-02-23 00:50 | NUR ---
PT SLEEPING COMFORTABLY BUT AROUSABLE. NO S/S OF DISTRESS NOTED. NO COMPLAINTS OF PAIN. NO SOB. AFEBRILE. WILL CONTINUE TO MONITOR.
--- NOTE | 2019-02-23 01:55 | NUR ---
MORA FROM [facility] CALLED TO INFORM THAT THERE ARE NO BEDS AVAILABLE STILL FOR THE PATIENT. WILL KEEP THE PATIENT ON THEIR BOARD AND LET US KNOW WHEN THERE IS A BED AVAILABLE.
[2019-02-23] MEDS: POTASSIUM CHL 20 MEQ/NACL 0.9% 1,000 ML IV SCH ×2 (02:06→15:07)
--- NOTE | 2019-02-23 02:06 | NUR ---
LUZ KCL 20MEQ HUNG AND RUNNING.
--- NOTE | 2019-02-23 02:59 | NUR ---
RECEIV[place] CALL FROM [facility] [place] SAID [place] DO NOT HAVE ACCEPTING DR HERNANDEZ.
[2019-02-23] MEDS: MORPHINE SULFATE 2 MG/ML SYR IVP PRN ×4 (03:44→17:05)
--- NOTE | 2019-02-23 03:44 | NUR ---
MORPHINE GIVEN FOR 9/10 LEG PAIN. PT TOLERATED WELL.
[2019-02-23 04:00] VITALS: BP 151/75
[2019-02-23] MEDS: PIPERACILLIN/TAZOBACTAM 3.375 GM in DEXTROSE 5% 50 ML IV SCH ×3 (04:07→21:27)
--- NOTE | 2019-02-23 04:07 | NUR ---
FLY HUNG AND RUNNING. PT TOLERATING WELL.
--- NOTE | 2019-02-23 06:15 | NUR ---
ODILON FROM [facility] CALLED AND SAID THEY MAY BE HAVE BED FOR PT TODAY.ASKED NAME OF PT'S AND SHE HAD DIRECT # OF RESIDENT ALSO.
--- NOTE | 2019-02-23 06:35 | NUR ---
PT UP AND WATCHING TV. COMPLAINING ABOUT EVERYTHING. PT IN STABLE CONDITION.
[2019-02-23 07:06] LABS: HEMATOCRIT 26.9 % (36-52); HEMOGLOBIN 8.7 g/dL (12.0-18.0); MEAN CORPUSCULAR HEMOGLOBIN 30 pg (27-31); MEAN CORPUSCULAR HGB CONC 32 g/dL (33-37); MEAN CORPUSCULAR VOLUME 92.5 fL (80-94); PLATELET COUNT (AUTO) 401 K/uL (140-450); RED BLOOD CELL COUNT(AUTO) 2.91 MIL/uL (4.20-6.10); RED CELL DISTRIBUTION WIDTH 15.4 % (11.6-13.7)
--- NOTE | 2019-02-23 07:29 | NUR ---
SHIFT REPORT RECEIVED FROM [employer]ACH[employer] SUPERVISOR NURSE. PT IS RELAXING AT THIS TIME. NO SIGNS OF DISTRESS NOTED. NO COMPLAINS OF PAIN. CALL LIGHT IN REACH.
[2019-02-23 07:31] LABS: WHITE BLOOD COUNT (AUTO) 27.6 K/uL (4.8-10.8)
[2019-02-23 07:32] LABS: LYMPHOCYTES % (MANUAL) 4 % (20-46); MONOCYTES % (MANUAL) 4 % (5-12)
[2019-02-23 08:00] VITALS: BP 152/83
[2019-02-23 08:17] LABS: CHLORIDE 104 mmol/L (98-107); CREATININE 1.2 mg/dL (0.7-1.3); GLUCOSE 75 mg/dL (74-106); POTASSIUM 4.3 mmol/L (3.5-5.1); SODIUM SERUM 135 mmol/L (136-145); UREA NITROGEN, BLOOD 24 mg/dL (7-18)
[2019-02-23] MEDS: METHADONE 10 MG TAB PO SCH (08:24)
[2019-02-23] MEDS: LACTOBACILLUS RHAMNOSUS GG 1 EACH CAP PO SCH (08:25)
[2019-02-23] MEDS ORDERED: TAMSULOSIN 0.4 MG CAP PO SCH (08:30)
--- NOTE | 2019-02-23 08:30 | NUR ---
JER FROM [facility] FROM THE TRANSFER DEPARTMENT CALLED TO ENQUIRE ABOUT THE CONDITION OF THE PATIENT. JER WILL TALK TO THE PHYSICIAN FOR FURTHER INFORMATION.
[2019-02-23 08:32] LABS: ANION GAP 7.8 (8-16); CARBON DIOXIDE 27.5 mmol/L (21-32)
[2019-02-23] MEDS ORDERED: ASPIRIN 81 MG TAB.CHEW PO SCH (09:00)
[2019-02-23] MEDS ORDERED: LISINOPRIL 10 MG TAB PO SCH (09:00)
[2019-02-23] MEDS ORDERED: ATORVASTATIN 80 MG TAB PO SCH (09:00)
[2019-02-23] MEDS ORDERED: FUROSEMIDE 40 MG/4 ML VIAL IVP SCH (09:00)
--- NOTE | 2019-02-23 09:30 | NUR ---
PT WAS REPOSITIONED. PATIENT TOLERATED WELL. PT IS RELAXING IN BED. CALL LIGHT IN REACH.
[2019-02-23] MEDS: MUPIROCIN CA NASAL 2% 1GM TUBE NS SCH (11:46)
[2019-02-23] MEDS: CHLORHEXADINE GLUC 2% CLOTH TP SCH (11:46)
[2019-02-23 12:00] VITALS: BP 150/84
--- NOTE | 2019-02-23 12:00 | NUR ---
PT WAS SEEN TODAY BY THE NET TRAINER. PT HAS BLISTERS ON HIS RIGHT FOOT. PAINFUL TO TOUCH. BLISTER INTACT. NOTED WITH REDNESS TO BILATERAL LOWER LEGS. EDEMA NOTED ON BILATERAL LEGS. SKIN INTACT. CALL LIGHT IN REACH.
--- NOTE | 2019-02-23 15:30 | NUR ---
[place] PLANNING: [phone] CM TO FOLLOW
[2019-02-23 16:00] VITALS: BP 153/83
--- NOTE | 2019-02-23 16:24 | NUR ---
DC PLANNING: CALLED [facility] [phone] SPOKE WITH EDIT PROVIDED MD'S CELL PHONE AND SHE IS REQUESTING THE TRANSFER BACK AGREEMENT LETTER TO BE SIGNED AND WILL SEND ONE CM TO FOLLOW
[2019-02-23] MEDS ORDERED: VANCOMYCIN 1,000 MG in DEXTROSE 5% 250 ML IV SCH (17:00)
[2019-02-23] MEDS ORDERED: hydrALAZINE 20 MG/ML VIAL IVP SCH (18:00)
--- NOTE | 2019-02-23 18:00 | NUR ---
CLIVE FROM [facility] TRANSFER CENTER CALLED, NO BED AVAILABLE THEY WILL CALL BACK IN 4 HRS IF THEY HAVE TELEMETRY DISCHARGES TONIGHT. DR. DARBY AT THE STATION NOTIFIED. NO NEW ORDERS.
--- NOTE | 2019-02-23 18:00 | NUR ---
PT'S BLISTER ON RIGHT FOOT RUPTURED. NOTIFIED DR LEMON, TANKMAN. PER DR LEMON APPLY IODINE TO AREA AND IN BETWEEN TOES. PT IS IN BED HAVING DINNER. CALL LIGHT IN REACH.
--- NOTE | 2019-02-23 19:30 | NUR ---
RECEIVED BEDSIDE REPORT FROM AM SHIFT RN FOR PT'S CONTINUITY OF CARE. PT IS AAO X 4, ON ROOM AIR, ON WELDER PRODUCTION LINE ARC, HAS RIGHT FA 22G WITH POTASSIUM CHLORIDE IN NS AT 50ML/HR. EXPLAINED TO PT THE SUMMER CLERK ROUTINE, PT VERBALIZED UNDERSTANDING. PT C/O RIGHT LEG PAIN, WILL MEDICATE PT. SAFETY MEASURES AND ISOLATION PRECAUTION IN PLACE. WILL MONITOR PT THROUGHOUT SHIFT.
--- NOTE | 2019-02-23 19:30 | NUR ---
SHIFT REPORT GIVEN TO FORESTRY SUPERVISOR NURSE. PT IS IN STABLE CONDITION. RECHECKED VITAL SIGNS. DOCUMENTED AND ENDORSED TO FORESTRY SUPERVISOR NURSE. CALL LIGHT IN REACH.
[2019-02-23] MEDS: HYDROcodone/APAP 5/325 MG 1 TAB TAB PO PRN (19:46)
--- NOTE | 2019-02-23 19:47 | NUR ---
PT C/O RIGHT LEG PAIN. ADMINISTERED PRN PO PAIN MEDICATION ORDERED. PT REQUESTED AND PROVIDED Addendum: 02/23/19 at 2152 by Annemarie Issa RN CONTINUATION: COFFEE AND SNACKS.
[2019-02-23 20:00] VITALS: BP 145/82
[2019-02-23] MEDS: ZOLPIDEM 5 MG TAB PO PRN (21:27)
--- NOTE | 2019-02-23 21:35 | NUR ---
ADMINISTERED SCHEDULED MEDICATIONS ORDERED. PT TOLERATED THEM WELL. RECEIVED CALL FROM MIRANDA, FROM [facility], DECLINED TRANSFER DT MAX BED CAPACITY REACHED.
--- NOTE | 2019-02-23 23:00 | NUR ---
RECEIVED CALL FROM [facility] (TRANSFER CENTER [phone]) FROM [facility], BED AVAILABLE FOR TRANSFER. [facility] [address] RM 3 BED 1 # [phone], DR. TORI KNUTSON ([facility] SURGEON) ACCEPTING SURGEON. WILL ARRANGE TRANSPORTATION AND INITIATE DISCHARGE PAPERWORK AND PROTOCOL.
[2019-02-24] VITALS: BP 165/84
[2019-02-24] MEDS: MORPHINE SULFATE 2 MG/ML SYR IVP PRN (00:55)
--- NOTE | 2019-02-24 01:15 | NUR ---
WOUND CULTURE AND DISCHARGE PHOTOGRAPHS TAKEN. REPORT GIVEN TO [place], RECEIVING RN AT [place] FOR HIGHER LEVEL OF CARE FOR VASCULAR SURGERY MD . PT C/O LEG PAIN, ADMINISTERED PRN IVP PAIN MEDICATION ORDERED. PT WAS CHANGED, KEPT IV WRAPPED, PATENT, AND INTACT.
[2019-02-24 01:35] VITALS: BP 165/84
--- NOTE | 2019-02-24 02:30 | NUR ---
PT DISCHARGE PAPERWORK SIGNED, PT TEACHING GIVEN. VS T: 98.2, BP 151/116, HR 88, O2 SAT 98% ON ROOM AIR, RR 19. PT AGITATED, COMPLAINING, BUT COOPERATIVE AND NOT IN DISTRESS. PT BELONGINGS GIVEN TO THE [facility] TRANSPORT PERSONNEL. REMOVED TELE MONITOR, AND ID BANDS.
--- NOTE | 2019-02-24 02:45 | NUR ---
PT WAS PICKED UP BY [facility], REPORT GIVEN, PT STILL C/O PAIN 07/25. DISCHARGE PAPERWORK AND PROTOCOL IMPLEMENTED.
== END 2019-02-24 02:40 | disposition short-term general hospital (02) | DRG 871 ==
LOC: MED 11:57 → MTU 16:19
PROVIDERS: ADMIT General Practice; ATTEND General Practice
DX: A41.9 Sepsis, unspecified organism (principal); E43 Unspecified severe protein-calorie malnutrition; L03.116 Cellulitis of left lower limb; E87.2 Acidosis; E87.1 Hypo-osmolality and hyponatremia; L03.115 Cellulitis of right lower limb; Z68.1 Body mass index [BMI] 19.9 or less, adult; L02.611 Cutaneous abscess of right foot; R65.20 Severe sepsis without septic shock; F15.10 Other stimulant abuse, uncomplicated; I10 Essential (primary) hypertension; F17.210 Nicotine dependence, cigarettes, uncomplicated; F43.0 Acute stress reaction; D64.9 Anemia, unspecified; F15.19 Other stimulant abuse with unspecified stimulant-induced disorder; L97.519 Non-pressure chronic ulcer of other part of right foot with unspecified severity; D72.829 Elevated white blood cell count, unspecified; D63.8 Anemia in other chronic diseases classified elsewhere; F19.19 Other psychoactive substance abuse with unspecified psychoactive substance-induced disorder; E02 Subclinical iodine-deficiency hypothyroidism; I73.9 Peripheral vascular disease, unspecified; S93.601A Unspecified sprain of right foot, initial encounter; X58.XXXA Exposure to other specified factors, initial encounter; S93.602A Unspecified sprain of left foot, initial encounter; E83.42 Hypomagnesemia; N40.1 Benign prostatic hyperplasia with lower urinary tract symptoms; R33.8 Other retention of urine; K57.30 Diverticulosis of large intestine without perforation or abscess without bleeding; Z22.322 Carrier or suspected carrier of Methicillin resistant Staphylococcus aureus; Y93.89 Activity, other specified; Y92.89 Other specified places as the place of occurrence of the external cause; Y99.8 Other external cause status
CPT/HCPCS: 36415; 71045; 73610; 73630; 73701; 76881; 80048; 80053; 80202; 80305; 81003; 82150; 83036; 83605; 83615; 83690; 83735; 83880; 84100; 84134; 84443; 84484; 85025; 85610; 85730; 87040; 87070; 87075; 87081; 87086; 93005; 93925; 93970; 96365; 96372; 96375; 96376; 99283; 99285; G0482; J0360; J1644; J1885; J1940; J2270; J2543; J3370; J3475; J7030; J7060; Q0092

== ENCOUNTER 2019-03-05 16:00 | Inpatient (IN) | payer OTHER, MEDICAID ==
[~2019-03-05] VITALS: Ht 185.4 cm; Wt 65.8 kg
[~2019-03-05 16:00] MED LIST changes: +ACET-1182 PO; -AMOX-1000 PO; +ASPI81CT95 PO; +CHLO118S2 TP; +DOL10 PO; +HEPA500056 SUBQ; -INUL1CTB PO; +LAS20I IVP; +LIP80 PO; +MORP2SOL18 IVP; +MUPI2CRE22 NS; +ZOS3.375PM IV; +[UNRECOGNIZED DRUG - CODE] IV
[2019-03-05] MEDS: NACL 0.9% 1,000 ML IV SCH (16:12)
[2019-03-05] MEDS ORDERED: HYDROcodone/APAP 5/325 MG 1 TAB TAB PO PRN (16:15)
[2019-03-05] MEDS ORDERED: ONDANSETRON 4 MG/2 ML VIAL IM/IVP PRN (16:15)
[2019-03-05] MEDS ORDERED: DOCUSATE SODIUM 100 MG GELCAP PO PRN (16:15)
[2019-03-05] MEDS ORDERED: ACETAMINOPHEN 325 MG TAB PO PRN (16:15)
--- NOTE | 2019-03-05 16:20 | NUR ---
RECEIVED PT FROM [facility]. PT IS AWAKE AND ALERT, C/O PAIN IN THE RLE. SPONGES AND TUBING FROM WOUND VAC ARE NOTED ALONG THE RLE. R INNER TERRY AREA APPEARS RED AND INFLAMED. BLE'S ARE COVERED WITH DRY SCABS AND DRY PEELING SKIN. PHOTOS TAKEN. IV SITE L AC 20 G. PT IS ON ROOM AIR. PT PLACED ON FALL PRECAUTIONS AND CONTACT ISOLATION. CALL LIGHT GIVEN WITHIN REACH. VS STABLE: BP 125/66, HR 92, O2 97, RR 18, TEMP 98.1.
[2019-03-05] MEDS ORDERED: VANCOMYCIN PER PHARMACY MC PRN (16:40)
[2019-03-05 17:06] LABS: BASOPHILS # (AUTO) 0.1 K/uL (0.00-0.22); BASOPHILS % (AUTO) 0.6 % (0.0-2.0); EOSINOPHILS % (AUTO) 0.5 % (0.0-4.0); HEMOGLOBIN 7.8 g/dL (12.0-18.0); LYMPHOCYTES # (AUTO) 1.5 K/uL (2.0-11.5); MEAN CORPUSCULAR HEMOGLOBIN 30 pg (27-31); MEAN CORPUSCULAR HGB CONC 33 g/dL (33-37); MEAN CORPUSCULAR VOLUME 92.1 fL (80-94); MONOCYTES # (AUTO) 1.2 K/uL (0.8-1.0); MONOCYTES % (AUTO) 12.6 % (1.7-9.3); NEUTROPHILS # (AUTO) 6.6 K/uL (1.8-7.7); NEUTROPHILS % (AUTO) 70.3 % (42.2-75.2); PLATELET COUNT (AUTO) 587 K/uL (140-450); RED CELL DISTRIBUTION WIDTH 15.4 % (11.6-13.7); WHITE BLOOD COUNT (AUTO) 9.5 K/uL (4.8-10.8)
[2019-03-05 17:26] LABS: MAGNESIUM 1.9 mg/dL (1.8-2.4); PHOSPHORUS 4.1 mg/dL (2.5-4.9); PROTHROMBIN TIME 9.2 secs (10.8-13.4)
[2019-03-05 17:29] LABS: ALBUMIN 1.5 g/dL (3.4-5.0); ANION GAP 11.7 (8-16); ASPARTATE AMINOTRANSFERASE 25 U/L (15-37); CARBON DIOXIDE 26.4 mmol/L (21-32); CHLORIDE 102 mmol/L (98-107); CREATININE 1.1 mg/dL (0.7-1.3); GLUCOSE 92 mg/dL (74-106); POTASSIUM 5.1 mmol/L (3.5-5.1); SODIUM SERUM 135 mmol/L (136-145); TOTAL BILIRUBIN 0.3 mg/dL (0.0-1.0); UREA NITROGEN, BLOOD 25 mg/dL (7-18)
[2019-03-05] MEDS ORDERED: VITC500 PO (17:33)
[2019-03-05] MEDS ORDERED: AMLO5TAB6 PO (17:33)
[2019-03-05] MEDS ORDERED: GABA100C PO (17:37)
[2019-03-05] MEDS ORDERED: TAMS0.4C96 PO (17:37)
[2019-03-05 17:45] VITALS: BP 125/66
[2019-03-05] MEDS: MORPHINE SULFATE 4 MG/ML SYR IVP PRN (18:12)
--- NOTE | 2019-03-05 18:30 | NUR ---
ACCORDING TO LENNOX FONSECA, WE DON'T HAVE WOUND VAC AVAILABLE TO CONNECT TO PT'S LEG, AND WILL NEED TO ORDER ONE. CHARGE NURSE AND DR SCHUMACHER ARE AWARE. WILL ENDORSE TO CEMENT CAR DUMPER.
[2019-03-05] MEDS ORDERED: VANCOMYCIN 1GM/DEXT 5% PREMIX 200 ML IV SCH (19:00)
--- NOTE | 2019-03-05 19:20 | NUR ---
ENDORSED PT TO CENTER CONSULTANT NURSE IN STABLE CONDITION
[2019-03-05] MEDS ORDERED: oxyCODONE/APAP 5/325 MG 1 TAB TAB PO PRN (19:35)
--- NOTE | 2019-03-05 19:40 | NUR ---
RECEIVED PT IN STABLE CONDITION FROM AM NURSE. AWAKE,ALERT AND ORIENTED X4. ON TELE MONITOR.BEDREST. WITH CELLULITIS ON BLE. MORE ON RT LOWER LEG,WITH WOUND VAC . WITH SWELLING ON THE RT KNEE.FUSING WELL RT GROIN ALSO WITH SMALL WOUND VAC WITH CHON DRESSING. LT LOWER LEG SKIN DRY. IVF INFUSING WELL ON THE LT AC G#20. CLEAR AND PATENT. PLAN OF CARE DISCUSSED WITH DR. SCHUMACHER. BED ON LOW POSITION. SIDE RAILS UP X2 AND CALL LIGHT AND URINAL PLACED WITHIN REACH. ON CONTACT ISOLATION. WILL CONTINUE TO MONITOR.
--- NOTE | 2019-03-05 19:41 | NUR ---
CALLED RANJEET NIETO TO FIND OUT WHAT THE WHITE BOX IS CONNECTING TO PT'S INGUINAL AREA DRESSING, IT IS A "CHON DRESSING" WHICH WORKS LIKE A SMALL WOUND VAC. RANJEET NIETO SENT US AN EXTRA KIT IF WE NEED TO CHANGE THE CHON DRESSING. DR SCHUMACHER IS AWARE OF THIS DEVICE AND WILL ADVISE ON WHETHER PT NEEDS IT.
[2019-03-05 20:00] VITALS: BP 129/75
--- NOTE | 2019-03-05 20:30 | NUR ---
PROVIDED WITH NEEDS. REQUESTED FOR SOME COFFEE ,JELLO AND CRACKERS. TOLERATED WELL.
[2019-03-05] MEDS ORDERED: PIPERACILLIN/TAZOBACTAM 3.375 GM in DEXTROSE 5% 50 ML IV SCH (21:00)
[2019-03-05] MEDS: PENICILLIN V POTASSIUM 250 MG TAB PO SCH (21:26)
--- NOTE | 2019-03-05 22:15 | NUR ---
DR. OBREGON ,CONSULT CAME WITH DR. NEWMAN. SEEN PT AND DISCUSSED PLAN OF CARE.
[2019-03-05] MEDS: MELATONIN 3 MG TAB PO PRN (23:28)
--- NOTE | 2019-03-05 23:28 | NUR ---
C/O INSOMNIA. MEDICATED WITH ORDERED.
[2019-03-05 23:58] VITALS: BP 132/65
[2019-03-06] MEDS: MORPHINE SULFATE 4 MG/ML SYR IVP PRN ×5 (00:05→21:16)
--- NOTE | 2019-03-06 01:30 | NUR ---
PT ASLEEP. NO S/S OF ANY DISTRESS NOR ANY DISCOMFORT NOTED.
--- NOTE | 2019-03-06 02:30 | NUR ---
PT REQUESTED FOR SOME CRACKERS AND JUICE. NO C/.O ANY PAIN NOTED.
[2019-03-06 04:02] VITALS: BP 160/84
--- NOTE | 2019-03-06 04:07 | NUR ---
PT C/O PAIN NOT THE LEGS. MEDICATED ORDERED. WILL CONTINUE TO MONITOR.
[2019-03-06 04:22] LABS: BARBITURATE, URINE NEG. ng/ml (NEG <=200); BENZODIAZEPINE, URINE NEG. ng/mL (NEG <=200); CANNABINOID, URINE NEG. ng/mL (NEG <=50); COCAINE, URINE NEG. ng/mL (NEG <=300); OPIATE, URINE POS. ng/mL (NEG <=2000); PHENCYCLIDINE SCREEN,URINE NEG. ng/mL (NEG <=25)
[2019-03-06 04:40] LABS: APPEARANCE,URINE CLEAR (CLEAR); BILIRUBIN,URINE NEGATIVE (NEGATIVE); BLOOD, URINE NEGATIVE (NEGATIVE); COLOR,URINE YELLOW (YELLOW); LEUKOCYTE ESTERASE ,URINE NEGATIVE (NEGATIVE); NITRITE, URINE NEGATIVE (NEGATIVE); UGLUCOSE NEGATIVE (NEGATIVE)
--- NOTE | 2019-03-06 05:07 | NUR ---
PT ASLEEP. O S/S OF ANY PAIN AT THIS TIME.
[2019-03-06] MEDS: PENICILLIN V POTASSIUM 250 MG TAB PO SCH ×3 (05:30→20:50)
[2019-03-06] MEDS ORDERED: hydrALAZINE 20 MG/ML VIAL IVP PRN (05:50)
--- NOTE | 2019-03-06 05:50 | NUR ---
WITH SMALL LEAKED FROM THE WOUND VAC. BED CHANGED . PT REPOSITIONED FOR COMFORT .
--- NOTE | 2019-03-06 06:18 | NUR ---
NO BM DURING THE NIGHT. STILL NEED SPECIMEN FOR STOOL OB. WILL ENDORSE TO AM NURSE.
[2019-03-06 07:04] LABS: ANION GAP 12.1 (8-16); CARBON DIOXIDE 23.3 mmol/L (21-32); CHLORIDE 101 mmol/L (98-107); CREATININE 0.9 mg/dL (0.7-1.3); GLUCOSE 91 mg/dL (74-106); POTASSIUM 4.4 mmol/L (3.5-5.1); SODIUM SERUM 132 mmol/L (136-145); UREA NITROGEN, BLOOD 22 mg/dL (7-18)
[2019-03-06 07:09] LABS: BASOPHILS # (AUTO) 0.2 K/uL (0.00-0.22); BASOPHILS % (AUTO) 1.6 % (0.0-2.0); EOSINOPHILS % (AUTO) 0.3 % (0.0-4.0); HEMATOCRIT 21.5 % (36-52); HEMOGLOBIN 7.2 g/dL (12.0-18.0); LYMPHOCYTES # (AUTO) 1.5 K/uL (2.0-11.5); MEAN CORPUSCULAR HEMOGLOBIN 30 pg (27-31); MEAN CORPUSCULAR HGB CONC 33 g/dL (33-37); MEAN CORPUSCULAR VOLUME 91.2 fL (80-94); MONOCYTES % (AUTO) 9.5 % (1.7-9.3); NEUTROPHILS % (AUTO) 74.6 % (42.2-75.2); PLATELET COUNT (AUTO) 567 K/uL (140-450); RED BLOOD CELL COUNT(AUTO) 2.36 MIL/uL (4.20-6.10); RED CELL DISTRIBUTION WIDTH 15.5 % (11.6-13.7); WHITE BLOOD COUNT (AUTO) 10.7 K/uL (4.8-10.8)
--- NOTE | 2019-03-06 07:15 | NUR ---
ENDORSED PT IN STABLE CONDITION TO AM NURSE.
--- NOTE | 2019-03-06 07:20 | NUR ---
RECEIVED REPORT FROM NIGHT NURSE. PATIENT IS FULL CODE, NKA. PATIENT HAS A WOUND VAC TO RIGHT LOWER EXTREMITY, PENDING WOUND CARE NURSE EVALUATION. PATIENT IS ON BEDREST. IV TO LEFT AC 22G, PATIENT USES URINAL. PLAN IS TO TRANSFER PATIENT TO SNF FOR IV ABX. AAOX4, MECHANICAL SOFT DIET. WILL REVIEW AND CONTINUE WITH PLAN OF CARE.
[2019-03-06 07:25] LABS: CHOL/HDL RATIO 3.1 (1-4.5)
[2019-03-06 08:00] VITALS: BP 150/78
[2019-03-06] MEDS: ASCORBIC ACID 500 MG TAB PO SCH (08:23)
[2019-03-06] MEDS: TAMSULOSIN 0.4 MG CAP PO SCH (08:23)
[2019-03-06] MEDS: GABAPENTIN 100 MG CAP PO SCH ×3 (08:24→17:39)
[2019-03-06] MEDS: ASPIRIN 81 MG TAB.CHEW PO SCH (08:25)
[2019-03-06] MEDS: amLODIPine 5 MG TAB PO SCH (08:25)
[2019-03-06] MEDS: ATORVASTATIN 80 MG TAB PO SCH (08:25)
--- NOTE | 2019-03-06 08:28 | NUR ---
ADMINISTERED MORNING MEDICATION, PATIENT TOLERATED WELL. ADMINISTERED MORPHINE IVP FOR PAIN 09/24. WILL RE-ASSESS PAIN LEVEL. NO FURTHER COMPLAINTS AT THIS TIME.
[2019-03-06 08:29] LABS: MAGNESIUM 1.7 mg/dL (1.8-2.4); PHOSPHORUS 3.5 mg/dL (2.5-4.9)
[2019-03-06] MEDS: NACL 0.9% 1,000 ML IV SCH (08:38)
[2019-03-06] MEDS ORDERED: METHADONE 10 MG TAB PO SCH ×3 (09:00)
--- NOTE | 2019-03-06 09:00 | NUR ---
PATIENT HAS BEEN SCREENED AND CATEGORIZED HIGH NUTRITION RISK. PATIENT WILL BE SEEN WITHIN 1-2 DAYS OF ADMISSION. 03/06/19-03/07/[address]
[2019-03-06] MEDS: METHADONE 10 MG TAB PO SCH (10:37)
--- NOTE | 2019-03-06 10:51 | NUR ---
ADMINISTERED METHADONE 90MG FOR WITHDRAWAL.
--- NOTE | 2019-03-06 11:00 | NUR ---
WOUND CARE EVALUATION NOTES: REASON FOR EVALUATION: BILATERAL LOWER EXTREMITY CELLULITIS S/P FEMORAL ARTERY BYPASS OF RIGHT LOWER EXTREMITY WOUND ASSESSMENT COMPLETED ON THIS 73 Y/O MALE ADMITTED TO [facility] UN[facility] FOR BLE CELLULITIS. PATIENT WAS ADMITTED FROM [facility] AFTER HAVING A RIGHT FEMORAL ENDARTERECTOMY, PROFUNDOPLASTY, RIGHT FEMORAL POPLITEAL BYPASS WITH GRAFT, RIGHT LEG AND FOOT WOUND DEBRIDEMENT ON 03/02/19 DUE TO SEVERE PERIPHERAL VASCULAR DISEASE OF BILATERAL LOWER EXTREMITIES WITH COMPLETE OCCLUSION OF THE MID SUPERFICIAL FEMORAL ARTERY. PAST MEDICAL HISTORY INCLUDES SEVERE PERIPHERAL VASCULAR DISEASE, HTN, METHAMPHETAMINE ABUSE, BPH, SEVERE MALNUTRITION, PAD, PRESSURE ULCER. ALL ABOVE INFORMATION WAS OBTAINED FROM THE ADMISSION H&P. LABS ARE WBC:10.7, H/H:7.2/21.5, GLUCOSE:91, ALBUMIN: 1.5.PATIENT IS AWAKE, ALERT, ORIENTED X3, VERBAL. SKIN IS WARM TO TOUCH. ORAL MUCOSAL MEMBRANES ARE MOIST. RIGHT FEMORAL THIGH SURGICAL WOUND HAS CHON DRAIN DRESSING THAT IS PATENT, INTACT. PER DR. GARCIA KEEP CHON DRAIN DRESSING ON SURGEON DR. KING SAID TO KEEP CHON DRESSING FOR ONE WEEK AND THEN REMOVE WITHOUT REPLACEMENT. RIGHT LOWER EXTREMITY TERRY AND ANTERIOR FOOT HAS SURGICAL WOUND, DRESSINGS CHANGED, AWAITING FOR WOUND VACUUM MACHINE TO ARRIVE LATER TODAY. PLAN OF CARE AND PRESSURE PREVENTATIVE MEASURES DISCUSSED WITH PATIENT AND PRIMARY RN. PATIENT VERBALIZED UNDERSTANDING. COMORBIDITIES RELATED TO FURTHER SKIN BREAKDOWN SUCH IMPAIRED OR DECREASED MOBILITY AND DECREASED FUNCTIONAL ABILITY, AND LOW ALBUMIN LEVEL. INTEGUMENTARY: - RIGHT LOWER EXTREMITY TERRY S/P DEBRIDEMENT ON 03/02/19 MEASURING 10 X 6 X 0.3 CM. WOUND BED RED, CLEAN, 100% GRANULATION, FLOR-WOUND SKIN PINK, DRY, INTACT. MODERATE SEROSANGUINEOUS DRAINAGE, NO ODOR. - RIGHT LOWER EXTREMITY FOOT S/P DEBRIDEMENT ON 03/02/19 MEASURING 6.5 X 6 X 0.3 CM. WOUND BED RED, CLEAN, 100% GRANULATION, FLOR-WOUND SKIN PINK, DRY, INTACT. MODERATE SEROSANGUINEOUS DRAINAGE, NO ODOR. - BILATERAL LOWER EXTREMITY DRYNESS WITH WHITE FLAKY SKIN. NO ODOR, NO DRAINAGE. RECOMMENDATIONS: - APPLY KCI WOUND VAC TO RIGHT LOWER EXTREMITY TERRY AND FOOT SURGICAL WOUNDS PER [facility] THERAPY CLINICAL GUIDELINES. CHANGE DRESSING 3X/WK ON WEDNESDAY, WEDNESDAY, WEDNESDAY, AND PRN IF DISLODGED. - BILATERAL LOWER EXTREMITIES SKIN DRYNESS - APPLY HYDRAGAURD TO DRY SKIN 2X/DAY ON BOTH LOWER EXTREMITIES. - TURN AND REPOSITION PATIENT Q2H. - ASSESS AND MONITOR SKIN CONDITION DURING POSITION CHANGES AND QSHIFT. - KEEP SKIN DRY AND CLEAN AT ALL TIMES. - RD CONSULT RECOMMENDATIONS DISCUSSED WITH PRIMARY RN AND DR. GARCIA. WILL FOLLOW-UP PATIENT Q7-10 DAYS AND PRN. PLEASE CONTACT WOUND CARE NURSE FOR ANY CONCERNS AND CHANGES IN WOUND CONDITION.
--- NOTE | 2019-03-06 11:39 | NUR ---
Orthophotography Technician Note: Basic Screen: Yes High Risk DC Screen [place]: N/A Pre-Admission Living Arrangements: Other Other: HOMELESS Prior ADL Independent Current Home Health Name/Tel: N/A Current DME/02 Name/Tel: N/A Current Hospice Name/Tel: N/A Current Dialysis Name/Tel: N/A Healthcare Decision Maker: Patient Advance Directive No - REFUSED Physician Orders for Life Sustaining Treatment Form No Patient/Family Have Educational Needs No Information Taught: Advance Directive Person Taught: Patient Teaching Tools: Verbal Factors Affecting Learning: None Participation Level: Refused Evaluation: Verbalizes Understanding Needs Additional Education: No Discipline: Case Mgt/Social Svcs Tentative Discharge Plan/Destination: SNF/ECF Will require assistance post discharge: No Referred to Strategy Intern: No Tentative Discharge Plan Summary: Patient is a 73-year-old male admitted for bilateral lower extremity. Patient has PMHX of essential hypertension, methamphetamine abuse on methadone, PAD, BPH, severe malnutrition, PVD, and pressure ulcer. Patient was admitted from [facility]. SW met with patient at bedside to verify demographics. Patient reported that he was homeless but was unable to account for how long he was homeless. SW provided board and care information to [facility] and [facility] [phone]. SW explained to patient that housing includes breafast, lunch, and dinner and is $700. Patient was amenable to plan. Patient reports no mental health history and that he was previously addicted to heroine. Patient states he goes to [facility] for methadone medication management. Patient's tentative discharge plan is to got a SNF and to follow up with board and care. No further needs identified. Signature: IDA Beal Date: Mar 06, 2019 Time: 11:38
[2019-03-06 12:00] VITALS: BP 151/77
--- NOTE | 2019-03-06 13:44 | NUR ---
*S.T. BEDSIDE SWALLOW EVAL COMPLETED* See report for details. Pt presents w/ mild oropharyngeal swallow function but does exhibit mild difficulty masticating solids due to being edentulous, with no dentures. Pt demo'd prolonged oral prep and mastication of solids and mild delay in swallow initiation due to that, but otherwise no overt s/s aspiration. Recommend: 1) Advance diet as tolerated, thin liquids okay. 2) P.O. meds okay whole, one at a time. 3) DC to nsg care at this time. No further tx indicated as pt appears to be functioning at his reported baseline level. D/w pt results/recommendations. Endorsed to BERNICE Hernandez. Time [id number]
[2019-03-06 16:00] VITALS: BP 122/59
--- NOTE | 2019-03-06 16:10 | NUR ---
WOUND VACUUM ARRIVED. APPLIED WOUND VAC TO RLE WOUNDS PER MD ORDERS AND PER WOUND VAC [facility] DIP NET STANDARD GUIDELINES. PATIENT TOLERATED PROCEDURE. NOTIFIED PRIMARY RN AND MD.
--- NOTE | 2019-03-06 17:40 | NUR ---
ADMINISTERED MORPHINE FOR PAIN. ADMINISTERED GABAPENTIN PO PER ORDER. WILL RE-ASSESS PAIN LEVEL
--- NOTE | 2019-03-06 19:20 | NUR ---
RECEIVED REPORT FROM AM SHIFT NURSE, MILDRED PT A, AO X 3, BEDREST WITH WOUND VAC TO RIGHT LOWER EXTREMITY,AND CHON . IV TO LEFT AC 22G, RECEIVED PT'S ARM SWOLLEN, INFILTRATED. WILL STOP IVF AND WILL INSERT A NEW ONE. PATIENT USES URINAL FALL RISK PRECAUTION IN PLACE. POC REVIEWED. WILL CONTINUE TO MONITOR
--- NOTE | 2019-03-06 19:30 | NUR ---
STOPPED IVF, WILL REMOVE IVF CANNULA
[2019-03-06 20:00] VITALS: BP 99/51
[2019-03-07] VITALS: BP 138/69
--- NOTE | 2019-03-07 00:05 | NUR ---
ATTEMPTED IV INSERTION X 1, FAILED. CHARGE NURSE TO INSERT AN IV LATER
[2019-03-07] MEDS: HYDRAGUARD CREAM TP SCH ×2 (01:26→13:53)
--- NOTE | 2019-03-07 01:31 | NUR ---
CHARGE NURSE ATTEMPTED 2X INSERTION, PATIENT ALREADY REFUSED TO BE POKED. WILL INFORM
[2019-03-07] MEDS: NACL 0.9% 1,000 ML IV SCH ×2 (01:32→18:12)
[2019-03-07] MEDS: MORPHINE SULFATE 4 MG/ML SYR IVP PRN ×3 (02:38→23:36)
[2019-03-07] MEDS: PENICILLIN V POTASSIUM 250 MG TAB PO SCH ×3 (05:50→22:05)
[2019-03-07 06:00] VITALS: BP 123/53
--- NOTE | 2019-03-07 07:15 | NUR ---
RECEIVED REPORT FROM FERMENTER HELPER NURSE. PATIENT IS HOMELESS, FULL CODE, NKA. PATIENT HAS A WOUND VAC PRESENT TO RIGHT LOWER EXTREMITY AND A CHON CONNECTED TO RIGHT FEMORAL ARTERY. AAOX4, USES URINAL. WILL REVIEW AND CONTINUE WITH PLAN OF CARE FOR THE DAY.
[2019-03-07 07:37] LABS: ANION GAP 11.9 (8-16); CARBON DIOXIDE 24.8 mmol/L (21-32); CHLORIDE 103 mmol/L (98-107); CREATININE 0.9 mg/dL (0.7-1.3); GLUCOSE 85 mg/dL (74-106); POTASSIUM 4.7 mmol/L (3.5-5.1); SODIUM SERUM 135 mmol/L (136-145); UREA NITROGEN, BLOOD 21 mg/dL (7-18)
[2019-03-07 07:38] LABS: MAGNESIUM 1.7 mg/dL (1.8-2.4); PHOSPHORUS 4.1 mg/dL (2.5-4.9)
[2019-03-07 08:21] LABS: BASOPHILS # (AUTO) 0.1 K/uL (0.00-0.22); BASOPHILS % (AUTO) 0.8 % (0.0-2.0); EOSINOPHILS # (AUTO) 0.1 K/uL (0-0.4); EOSINOPHILS % (AUTO) 0.9 % (0.0-4.0); HEMATOCRIT 21.8 % (36-52); HEMOGLOBIN 7.1 g/dL (12.0-18.0); LYMPHOCYTES # (AUTO) 1.5 K/uL (2.0-11.5); LYMPHOCYTES % (AUTO) 12.2 % (20.5-51.1); MEAN CORPUSCULAR HEMOGLOBIN 30 pg (27-31); MEAN CORPUSCULAR HGB CONC 33 g/dL (33-37); MONOCYTES # (AUTO) 1.2 K/uL (0.8-1.0); MONOCYTES % (AUTO) 9.9 % (1.7-9.3); NEUTROPHILS # (AUTO) 9.4 K/uL (1.8-7.7); NEUTROPHILS % (AUTO) 76.2 % (42.2-75.2); PLATELET COUNT (AUTO) 583 K/uL (140-450); RED BLOOD CELL COUNT(AUTO) 2.34 MIL/uL (4.20-6.10); RED CELL DISTRIBUTION WIDTH 15.4 % (11.6-13.7); WHITE BLOOD COUNT (AUTO) 12.4 K/uL (4.8-10.8)
--- NOTE | 2019-03-07 09:11 | NUR ---
DC PLANNIN YRS OLD HOMELESS PT WAS READMITTED FROM [facility] AFTER UNDERGOING A RT FEMORAL ARTERY ENDARTERECTOMY PROFUNDOPLASTY RT FEMORAL POPLITEAL BYPASS WITH GRAFT ,RT LEG AND FOOT WOUND DEBRIDEMENT WITH THE WOUND VAC. PT HAS A DC ORDER TO GO TO SNF TO CONTINUE IV ABX AND POST SNF [facility]ANG[facility] AT [phone] AND PT AGREED TOGO THERE AFTER SNF. CM TO FOLLOW Addendum: 03/07/19 at 1106 by Suri Cheema CM DC PLANNING: RECEIVED A CALL FROM ABRAHAM AT [facility] STATED THEY ACCEPTED PT AND WILL ORDER WOUND-VAC, AND ALSO ARRANGE TRANSPORT. CM TO FOLLOW Addendum: 03/08/19 at 1123 by Suri Cheema CM DC PLANNING PT IS ACCEPTED AT [facility] CAN GO TO ROOM 7A , # TO GIVE REPORT [phone]. HUGO KUMARI [facility] WILL ARRANGE TRANSPORT AND [employer] TENDER TIME 1 PM NOTIFIED SHERRY LINDSAY Addendum: 03/08/19 at 1337 by Suri Cheema CM DC PLANNING RECEIVED A CALL FROM [facility] CONFIRMED THAT [employer] TENDER TIME IS 6 PM.
[2019-03-07] MEDS: METHADONE 10 MG TAB PO SCH (09:18)
[2019-03-07] MEDS: amLODIPine 5 MG TAB PO SCH (09:18)
[2019-03-07] MEDS: TAMSULOSIN 0.4 MG CAP PO SCH (09:19)
[2019-03-07] MEDS: ASPIRIN 81 MG TAB.CHEW PO SCH (09:19)
[2019-03-07] MEDS: ATORVASTATIN 80 MG TAB PO SCH (09:19)
[2019-03-07] MEDS: ASCORBIC ACID 500 MG TAB PO SCH (09:20)
[2019-03-07] MEDS: GABAPENTIN 100 MG CAP PO SCH ×3 (09:20→17:00)
--- NOTE | 2019-03-07 09:21 | NUR ---
ADMINISTERED MORNING MEDICATION. PATIENT TOLERATED WELL. NO COMPLAINTS AT THIS TIME
[2019-03-07 12:00] VITALS: BP 115/58
[2019-03-07] MEDS ORDERED: FURO-570 PO (12:17)
[2019-03-07] MEDS ORDERED: PENI-319 PO (12:17)
[2019-03-07 13:49] LABS: BASOPHILS # (AUTO) 0.1 K/uL (0.00-0.22); BASOPHILS % (AUTO) 0.7 % (0.0-2.0); EOSINOPHILS # (AUTO) 0.1 K/uL (0-0.4); EOSINOPHILS % (AUTO) 0.7 % (0.0-4.0); HEMATOCRIT 20.3 % (36-52); LYMPHOCYTES # (AUTO) 1.5 K/uL (2.0-11.5); LYMPHOCYTES % (AUTO) 14.3 % (20.5-51.1); MEAN CORPUSCULAR HEMOGLOBIN 30 pg (27-31); MEAN CORPUSCULAR HGB CONC 33 g/dL (33-37); MEAN CORPUSCULAR VOLUME 91.5 fL (80-94); NEUTROPHILS # (AUTO) 7.8 K/uL (1.8-7.7); NEUTROPHILS % (AUTO) 74.3 % (42.2-75.2); PLATELET COUNT (AUTO) 571 K/uL (140-450); RED BLOOD CELL COUNT(AUTO) 2.21 MIL/uL (4.20-6.10); RED CELL DISTRIBUTION WIDTH 15.5 % (11.6-13.7); WHITE BLOOD COUNT (AUTO) 10.5 K/uL (4.8-10.8)
[2019-03-07 14:26] LABS: HEMOGLOBIN 6.6 g/dL (12.0-18.0)
--- NOTE | 2019-03-07 14:33 | NUR ---
CRITICAL LAB VALUE OF HGB 6.[address] WRIGHT OF VALUE. PHYSICIAN TO SEE PATIENT
--- NOTE | 2019-03-07 15:15 | NUR ---
WILL OBTAIN CONSENT FOR BLOOD TRANSFUSION. PATIENT IS RESTING IN BED. NO S/S OF VISIBLE BLOOD LOSS NOTED. PATIENT DENIES BLOOD IN URINE. PATIENT HAS NOT HAD BM TODAY. PATIENT SKIN IS INTACT, WOUND VAC INTACT, NO SIGNS OF BLOOD LOSS FROM EXTREMITIES. DR WRIGHT AT BEDSIDE ASSESSING PATIENT. NO FURTHER COMPLAINTS AT THIS TIME
--- NOTE | 2019-03-07 15:37 | NUR ---
03/07/19 RD INITIAL ASSESSMENT COMPLETED PLEASE REFER TO NUTRITION ASSESSMENT UNDER CARE ACTIVITY FOR ESTIMATED NUTRITIONAL NEEDS. 1. CONTINUE MECHANICAL SOFT DIET TOLERATED 2. RD PROVIDED EDUCATIONAL HANDOUT FOR MECHANICAL SOFT DIET 3. DOUBLE PROTEIN WILL BE PROVIDED WITH MEALS FOR WOUND HEALING 4. RD TO FOLLOW-UP 5-7 DAYS, MODERATE RISK MIROSLAVA HICKS RD
[2019-03-07 16:00] VITALS: BP 98/56
--- NOTE | 2019-03-07 17:30 | NUR ---
OBTAINED URINE SAMPLE FOR UA. SENT OVER TO LAB
--- NOTE | 2019-03-07 17:53 | NUR ---
OBTAINED CONSENT FOR BLOOD TRANSFUSION AND PICC LINE PLACEMENT. CONSENT PLACED IN CHART. PICC LINE NURSE HAS BEEN INFORMED
--- NOTE | 2019-03-07 18:38 | NUR ---
PATIENT RESTING QUIETLY IN BED, AWAITING PICC LINE PLACEMENT. NO COMPLAINTS AT THIS TIME, ALL NEEDS HAVE BEEN MET. WILL ENDORSE TO MILITARY ANALYST FOR CONTINUITY OF CARE
[2019-03-07 18:39] LABS: APPEARANCE,URINE CLEAR (CLEAR); BILIRUBIN,URINE NEGATIVE (NEGATIVE); BLOOD, URINE NEGATIVE (NEGATIVE); COLOR,URINE ORANGE (YELLOW); LEUKOCYTE ESTERASE ,URINE NEGATIVE (NEGATIVE); NITRITE, URINE NEGATIVE (NEGATIVE); PH,URINE 5.5 (5.0-9.0); UGLUCOSE NEGATIVE (NEGATIVE)
[2019-03-07 20:00] VITALS: BP 120/52
--- NOTE | 2019-03-07 20:00 | NUR ---
PATIENT'S BLOOD READY BUT NO PICC LINE YET. WILL INFORM DR. JORDAN
--- NOTE | 2019-03-07 20:15 | NUR ---
PICC LINE NURSE ARRIVED AND ALSO, THE [employer] ARRIVED. WENT TO THE EBDSIDE, W/ CONSENT W, ORDER IN
--- NOTE | 2019-03-07 20:52 | NUR ---
Called PICC information security officer and texted Aaron QUEEN, lm both
--- NOTE | 2019-03-07 22:40 | NUR ---
PICCLINE NURSEELSIE CONFIRMED THROUGH XRAY RESULT THAT THE PICCLINE IS READY FOR USE
[2019-03-07] MEDS: MELATONIN 3 MG TAB PO PRN (23:37)
--- NOTE | 2019-03-07 23:55 | NUR ---
BLOOD TRANFUSION PRE-VITALS TAKEN 98 TEMP, 84,18,121/52 PAIN-8; 94%O2 SAT
[2019-03-08] VITALS: BP 123/56
--- NOTE | 2019-03-08 00:10 | NUR ---
BLOOD TRANSFUSION STARTED, VERIFIED W/ OTHER NURSE, JUSTYN, BLOOD INFO TO THE RIGHT PATIENT.
[2019-03-08] MEDS: HYDRAGUARD CREAM TP SCH ×2 (01:27→14:03)
--- NOTE | 2019-03-08 03:30 | NUR ---
PT BLOOD TRANSFUSION COMPLETED, NO BT REACTIONS NOTED.
--- NOTE | 2019-03-08 03:45 | NUR ---
INFORMED DR. JORDAN BLOOD TRANSFUSION DONE, AWARE. ORDERED FOR 0600AM H AND H.
--- NOTE | 2019-03-08 03:50 | NUR ---
RAIN LAB AWARE 0600AM H AND H.CHANGED FROM 2100 LAST NIGH TO 0600AM THIS AM
[2019-03-08 04:00] VITALS: BP 100/79
--- NOTE | 2019-03-08 04:38 | NUR ---
PT COMFORTABLE, NO ADVERSE REACTIONS NOTED FOR BLOOD TRANSFUSION, TRYING TO SLEEP
[2019-03-08] MEDS: PENICILLIN V POTASSIUM 250 MG TAB PO SCH ×2 (06:36→12:10)
[2019-03-08 07:18] LABS: BASOPHILS # (AUTO) 0.1 K/uL (0.00-0.22); BASOPHILS % (AUTO) 0.8 % (0.0-2.0); EOSINOPHILS # (AUTO) 0.1 K/uL (0-0.4); EOSINOPHILS % (AUTO) 0.9 % (0.0-4.0); HEMATOCRIT 21.8 % (36-52); HEMOGLOBIN 7.3 g/dL (12.0-18.0); LYMPHOCYTES # (AUTO) 1.6 K/uL (2.0-11.5); LYMPHOCYTES % (AUTO) 14.9 % (20.5-51.1); MEAN CORPUSCULAR HEMOGLOBIN 31 pg (27-31); MEAN CORPUSCULAR HGB CONC 34 g/dL (33-37); MEAN CORPUSCULAR VOLUME 90.5 fL (80-94); MONOCYTES # (AUTO) 1.3 K/uL (0.8-1.0); MONOCYTES % (AUTO) 12.2 % (1.7-9.3); NEUTROPHILS # (AUTO) 7.5 K/uL (1.8-7.7); NEUTROPHILS % (AUTO) 71.2 % (42.2-75.2); PLATELET COUNT (AUTO) 557 K/uL (140-450); RED BLOOD CELL COUNT(AUTO) 2.41 MIL/uL (4.20-6.10); RED CELL DISTRIBUTION WIDTH 15.6 % (11.6-13.7); WHITE BLOOD COUNT (AUTO) 10.6 K/uL (4.8-10.8)
--- NOTE | 2019-03-08 07:22 | NUR ---
PT AWAKE, ALERT ORIENTED, X 4 PT IN STABLE CONDITION. WILL ENDORSE TO NEXT SHIFT
--- NOTE | 2019-03-08 07:27 | NUR ---
RECEIVED BEDSIDE REPORT FROM NIGHTSHIFT NURSE. PT RESTING IN BED. ABLE TO MAKE NEEDS KNOWN. RESPIRATIONS EVEN AND UNLABORED WITH NO SOB OR RESPIRATORY DISTRESS. RIGHT UPPER ARM PICC LINE DOUBLE LUMEN IS CLEAN, DRY, AND INTACT. SKIN WARM AND DRY TO TOUCH. SAFETY MEASURES IN PLACE. WILL CONTINUE TO MONITOR.
[2019-03-08 07:38] LABS: ANION GAP 12.6 (8-16); CHLORIDE 103 mmol/L (98-107); CREATININE 0.9 mg/dL (0.7-1.3); GLUCOSE 83 mg/dL (74-106); POTASSIUM 4.6 mmol/L (3.5-5.1); SODIUM SERUM 133 mmol/L (136-145); UREA NITROGEN, BLOOD 23 mg/dL (7-18)
[2019-03-08 07:48] LABS: MAGNESIUM 1.8 mg/dL (1.8-2.4)
[2019-03-08 08:00] VITALS: BP 146/67
--- NOTE | 2019-03-08 09:30 | NUR ---
P.T. NOTES PATIENT REFUSED TO PARTICIPATE WITH P.T. SERVICES IN SPITE OF SEVERAL ENCOURAGEMENTS GIVEN. HIS RN SHERRY WAS MADE AWARE OF HIS REFUSAL. WE'LL FOLLOW UP AGAIN IF HE REMAINS IN THIS HOSPITAL.
[2019-03-08] MEDS: amLODIPine 5 MG TAB PO SCH (09:37)
[2019-03-08] MEDS: GABAPENTIN 100 MG CAP PO SCH ×2 (09:37→12:10)
[2019-03-08] MEDS: TAMSULOSIN 0.4 MG CAP PO SCH (09:37)
[2019-03-08] MEDS: ASCORBIC ACID 500 MG TAB PO SCH (09:37)
[2019-03-08] MEDS: ATORVASTATIN 80 MG TAB PO SCH (09:37)
[2019-03-08] MEDS ORDERED: METHADONE 10 MG TAB ONE (09:42)
[2019-03-08] MEDS: METHADONE 10 MG TAB PO SCH (09:44)
[2019-03-08] MEDS: MORPHINE SULFATE 4 MG/ML SYR IVP PRN (09:45)
--- NOTE | 2019-03-08 09:45 | NUR ---
ADMINISTERED MEDICATION PRESCRIBED PER MD ORDER. PT CALLED AND COMPLAINED OF SEVERE. PAIN. PRN PAIN MEDICATION ADMINISTERED. MEDICATION EDUCATION PERFORMED. PT TOLERATED WELL AND VERBALIZED UNDERSTANDING. WILL CONTINUE TO MONITOR.
--- NOTE | 2019-03-08 10:45 | NUR ---
REPORT GIVEN TO NURSE AT [facility]. NURSE REPEATED INFORMATION BACK. WILL CONTINUE TO MONITOR
--- NOTE | 2019-03-08 11:10 | NUR ---
RECEIVED CALL FROM CLINICAL FELLOW SAYING THE PATIENT WILL BE TRANSFERRED TO [facility] AT 1PM. PT IS AWARE
[2019-03-08] MEDS: NACL 0.9% 1,000 ML IV SCH (11:11)
[2019-03-08 12:00] VITALS: BP 143/74
[2019-03-08 12:27] VITALS: BP 143/74
--- NOTE | 2019-03-08 13:30 | NUR ---
RECIEVED CALL FROM COMPOSITION INSTRUCTOR SAYING THE PICKUP WILL NOW BE AT 1800. PT IS NOTIFIED
--- NOTE | 2019-03-08 15:15 | NUR ---
HOURLY ROUNDING. PT RESTING IN BED. ABLE TO MAKE NEEDS KNOWN. RESPIRATIONS EVEN AND UNLABORED WITH NO SOB OR RESPIRATORY DISTRESS. SKIN WARM AND DRY TO TOUCH. SAFETY MEASURES IN PLACE. WILL CONTINUE TO MONITOR.
[2019-03-08 16:00] VITALS: BP 128/60
--- NOTE | 2019-03-08 18:28 | NUR ---
PT RESTING IN BED. ABLE TO MAKE NEEDS KNOWN. RESPIRATIONS EVEN AND UNLABORED WITH NO SOB OR RESPIRATORY DISTRESS. SKIN WARM AND DRY TO TOUCH. WENT OVER DISCHARGE PAPERWORK. PT SIGNED APPROPRIATE FORMS. ID BAND AND INTACT IV CANNULA REMOVED. PT CHANGED INTO ORANGE GOWN AND ORANGE BLANKETS. PT IS UP TO DATE ON VACCINES. DC PACKET GIVEN TO MEDICS. REPORT GIVEN TO MEDICS PT TRANSFERRED SAFELY ON [facility] AND IS TAKEN TP KARTIK SMILEY. PT IS STABLE
== END 2019-03-08 18:20 | DRG 602 ==
LOC: MTU 16:00
PROVIDERS: ADMIT General Practice; ATTEND General Practice
PROC: 02HV33Z Insertion of Infusion Device into Superior Vena Cava, Percutaneous Approach (ICD-10-PCS; principal; 2019-03-07)
PROC: B548ZZA Ultrasonography of Superior Vena Cava, Guidance (ICD-10-PCS; 2019-03-07)
PROC: 30233N1 Transfusion of Nonautologous Red Blood Cells into Peripheral Vein, Percutaneous Approach (ICD-10-PCS; 2019-03-08)
DX: L03.115 Cellulitis of right lower limb (principal); E43 Unspecified severe protein-calorie malnutrition; Z68.1 Body mass index [BMI] 19.9 or less, adult; E87.0 Hyperosmolality and hypernatremia; K57.32 Diverticulitis of large intestine without perforation or abscess without bleeding; I73.9 Peripheral vascular disease, unspecified; L03.116 Cellulitis of left lower limb; F11.10 Opioid abuse, uncomplicated; I10 Essential (primary) hypertension; N40.0 Benign prostatic hyperplasia without lower urinary tract symptoms; D64.9 Anemia, unspecified; E02 Subclinical iodine-deficiency hypothyroidism; N40.1 Benign prostatic hyperplasia with lower urinary tract symptoms; R33.8 Other retention of urine; G47.00 Insomnia, unspecified; Z87.891 Personal history of nicotine dependence
CPT/HCPCS: 36415; 71045; 80048; 80053; 80305; 81003; 82272; 83735; 83880; 84100; 85025; 85610; 85730; 86886; 86900; 86901; 86920; 87040; 87081; 92526; 97110; 97112; 97161-GP; 97530; C1751; J2270; J2543; J7030; J7060; P9016; Q0092

== ENCOUNTER 2019-04-20 02:37 | Emergency (ER) | payer OTHER, MEDICAID ==
[~2019-04-20] VITALS: Ht 182.9 cm; Wt 81.6 kg
[2019-04-20 02:37] VITALS: BP 120/71
[~2019-04-20 02:37] MED LIST changes: +AMLO5TAB6 PO; -CHLO118S2 TP; +FURO-570 PO; +GABA100C PO; -HEPA500056 SUBQ; -LAS20I IVP; -MORP2SOL18 IVP; -MUPI2CRE22 NS; +PENI-319 PO; +TAMS0.4C96 PO; +VITC500 PO; -ZOS3.375PM IV; -[UNRECOGNIZED DRUG - CODE] IV
--- NOTE | 2019-04-20 02:45 | NUR ---
BROUGHT IN BY AMBULANCE FOR GRAVELY DISABLED , HE WAS FOUND IN [facility], HES HOMELESS, WANDERING THE STREETS WITH NO FOODS , SENIOR LIVING WITH LIGHT CLOTHING. [place] [employer] WROTE ONHOLD FOR GRAVELY DIABLED. A&O X4. STEADY GAIT. NKA. PMH: NONE.
--- NOTE | 2019-04-20 02:48 | NUR ---
PER TELEPSYCH REQUEST INITIATED
--- NOTE | 2019-04-20 03:04 | NUR ---
URINAL GIVEN AT BEDSIDE.
[2019-04-20 03:06] LABS: BASOPHILS # (AUTO) 0.1 K/uL (0.00-0.22); BASOPHILS % (AUTO) 0.7 % (0.0-2.0); EOSINOPHILS # (AUTO) 0.1 K/uL (0-0.4); EOSINOPHILS % (AUTO) 1.6 % (0.0-4.0); HEMATOCRIT 30.4 % (36-52); HEMOGLOBIN 10.3 g/dL (12.0-18.0); LYMPHOCYTES # (AUTO) 2.4 K/uL (2.0-11.5); LYMPHOCYTES % (AUTO) 26.3 % (20.5-51.1); MEAN CORPUSCULAR HEMOGLOBIN 28 pg (27-31); MEAN CORPUSCULAR HGB CONC 34 g/dL (33-37); MEAN CORPUSCULAR VOLUME 83.7 fL (80-94); MONOCYTES # (AUTO) 0.8 K/uL (0.8-1.0); MONOCYTES % (AUTO) 9.2 % (1.7-9.3); NEUTROPHILS # (AUTO) 5.7 K/uL (1.8-7.7); NEUTROPHILS % (AUTO) 62.2 % (42.2-75.2); PLATELET COUNT (AUTO) 396 K/uL (140-450); RED BLOOD CELL COUNT(AUTO) 3.63 MIL/uL (4.20-6.10); WHITE BLOOD COUNT (AUTO) 9.2 K/uL (4.8-10.8)
--- NOTE | 2019-04-20 03:08 | NUR ---
PT SPEAKING TO VIA TELEPSYCH.
[2019-04-20 03:25] LABS: ALBUMIN 3.2 g/dL (3.4-5.0); ANION GAP 9.9 (8-16); ASPARTATE AMINOTRANSFERASE 32 U/L (15-37); CARBON DIOXIDE 27.3 mmol/L (21-32); CHLORIDE 92 mmol/L (98-107); CREATININE 1.2 mg/dL (0.6-1.3); GLUCOSE 80 mg/dL (74-106); POTASSIUM 3.2 mmol/L (3.5-5.1); SALICYLATE 3.3 mg/dL (2.8-20.0); SODIUM SERUM 126 mmol/L (136-145); TOTAL BILIRUBIN 0.2 mg/dL (0.0-1.0); UREA NITROGEN, BLOOD 15 mg/dL (7-18)
[2019-04-20 03:34] LABS: ACETAMINOPHEN < 0.5 ug/ml (10-30)
[2019-04-20] MEDS ORDERED: MAG SULF 2000 MG/WATER PREMIX 50 ML IV ONE (03:55)
[2019-04-20] MEDS ORDERED: NACL 0.9% 1,000 ML IV ONE (03:55)
[2019-04-20] MEDS ORDERED: THIAMINE 200 MG/2 ML VIAL IV ONE (03:55)
[2019-04-20] MEDS ORDERED: KCL 20 MEQ/WATER INJ PREMIX 100 ML IV ONE (03:55)
[2019-04-20] MEDS ORDERED: FOLIC ACID 1 MG TAB PO ONE (03:55)
--- NOTE | 2019-04-20 03:59 | NUR ---
PT REFUSED TO PROVIDE UA SAMPLE.
--- NOTE | 2019-04-20 04:40 | NUR ---
PT REFUSED TO GIVE URINE AND AN IV FOR MEDICATION. PT ASKED TO LEAVE. VIRID MADE AWARE.
[2019-04-20 04:46] VITALS: BP 120/71
--- NOTE | 2019-04-20 04:46 | NUR ---
Patient discharged with v/s stable. Written and verbal after care instructions given and explained. Patient alert, oriented and verbalized understanding of instructions. Ambulatory with steady gait. All questions addressed prior to discharge. ID band removed. Patient advised to follow up with PMD. Rx of POTASSIUM CHLORIDE AND MULTIVITAMIN WAS given. Patient educated on indication of medication including possible reaction and side effects. Opportunity to ask questions provided and answered. PT RECIEVED A HOMELESS PACKET, AND A SUBSTANCE ABUSE RESOURCE PACKET AND MADE AWARE OF FACILITIES HE COULD GO TO. PT SIGNED THE HOMELESS WAIVER FORM. PT WAS GIVEN A HOMELESS FOOD PACK, NEW CLOTHES AND SOCKS.
== END 2019-04-20 04:46 | disposition home or self-care (01) ==
LOC: MED 02:37
DX: E87.1 Hypo-osmolality and hyponatremia (principal); E87.6 Hypokalemia; I10 Essential (primary) hypertension; F10.20 Alcohol dependence, uncomplicated; Z79.899 Other long term (current) drug therapy; Z79.82 Long term (current) use of aspirin
CPT/HCPCS: 36415; 80053; 82948; 85025; 99283; G0480; G0482; J3411; J3475; J3480